=== PATIENT | male | born 1950 | race Caucasian/White ===

== ENCOUNTER 2019-07-13 00:59 | Outpatient (CLI) | payer MEDICARE, OTHER, SELFPAY ==
--- NOTE | 2019-07-13 09:42 | DI.RAD_ITS ---
EXAM: XR FOOT RT COMPLETE INDICATION: HALLUX VALGUS RT FOOT M20.11. COMPARISON: No exams were available for comparison TECHNIQUE: 2D digital imaging was performed. FINDINGS: There is some flattening of the plantar arch. There are small heel spurs. There is marked hallux va lgus. Degenerative changes are noted at the 1st MTP joint. Hammertoe deformities are present. IMPRESSION: Prominent hallux valgus.
== END 2019-07-13 01:19 ==
PROVIDERS: Visit Provider Podiatrist
DX: M20.11 Hallux valgus (acquired), right foot (principal); M77.31 Calcaneal spur, right foot; M20.41 Other hammer toe(s) (acquired), right foot
CPT/HCPCS: 73630

== ENCOUNTER 2020-12-13 10:36 | Emergency (ER) | payer OTHER, SELFPAY ==
[2020-12-13 10:41] VITALS: BP 133/69; PULSE 70; RESP 18; TEMP 36.4; O2SAT 98
--- NOTE | 2020-12-13 11:03 | ED.GENADUL_ITS ---
Discharge Plan Disposition Patient Disposition: HOME Condition: Stable Discharge Details Clinical Impression: Traumatic chest pain Primary Care Provider: Unknown,Unknown ED Provider: Emeka Blackman Home Meds and New Rx's Prescriptions: Continued dorzolamide-timolol [Cosopt] 22.3-6.8 mg/mL Drops 1 drp OPHTHALMIC (EYE) BID RF: 0 latanoprost 0.005 % Drops 1 drp OPHTHALMIC (EYE) QPM RF: 0 brimonidine 0.1 % Drops 1 drp OPHTHALMIC (EYE) TID RF: 0 Discharge Instructions Instructions: Rib Contusion (ED) Additional Instructions: You can take 1000mg tylenol and 600mg ibuprofen every 6 hours as needed for pain. Also try using your lidocaine patches if pain continues in a week follow up with your primary care provider if severe worsening pain or new pain such as abdomen pain or fevers return to the emergency department Medical Decision Making 70 yo male who denies being on blood thinners comes in with chief complaint of left sided chest discomfort after a fall. He states a week ago he tripped getting into his car and landed on his back and left chest. Denies head trauma or loc. He has had left lateral chest pain since the fall. Denies anterior chest pain or pressure or dyspnea. He states ibuprofen does help with the pain. Has no headache, no neck pain, no abdomen or back tenderness. Is noted to have a contusion over the coccyx but has no tenderness. No leg pain with normal gait. Only has pain in left lateral chest in the anterior axillary line over 5-7 ribs. no abdomen tenderness. I suspect rib contusion but will obtain xrays to evaluate for fracture and less likely pneumothorax, has clear lung sounds on exam. xray unremarkable and he remains stable without new complaints. Suspect rib contusion. Offered him a lidocaine patch but he declined as he has some at home. Advised to follow up with pcp and return precautions given Differential Diagnosis Differential Diagnosis: rib fracture, rib contusion, pneumothorax HPI General Mode of arrival: ambulatory . Date/Time Provider Initiated Documentation: 12/13/20 10:38 . Limitations to Documentation: no limitations . Information obtained by: patient . History of Present Illness 70 year old M presents to the emergency department with the chief complaint of left chest wall pain s/p fall, described as moderate, Quality is described as aching, and is localized to the chest. Patient reports no radiation. Patient started experiencing this week(s) (1) and it has been constant. other things that improve symptom(s), (ibuprofen) No exacerbating factors reported . Patient notes no other symptoms.. Patient did receive the following treatments prior to arrival, NSAID Related Data Home Medications Medication Instructions Recorded Confirmed brimonidine 1 drp OPHTHALMIC (EYE) TID 12/13/20 12/13/20 dorzolamide-timolol [Cosopt] 1 drp OPHTHALMIC (EYE) BID 12/13/20 12/13/20 latanoprost 1 drp OPHTHALMIC (EYE) QPM 12/13/20 12/13/20 Allergies Allergy/AdvReac Type Severity Reaction Status Date / Time oxycodone HCl AdvReac Unverified 12/13/20 10:49 [From OxyContin] General Stated Complaint: Chest/Rib CRISTEL: 3 Review of Systems All systems reviewed & are unremarkable except as noted in HPI and below Constitutional Constitutional: Denies chills, Denies fever(s) and Denies weakness Cardiovascular Cardiovascular: Denies dyspnea Respiratory Respiratory: Denies cough and Denies dyspnea Gastrointestinal Gastrointestinal: Denies abdominal pain, Denies nausea and Denies vomiting Musculoskeletal Musculoskeletal: Denies joint swelling Neurologic Neurologic: Denies weakness [facility] Social History Smoking/Tobacco Use Status: Never Smoking risk assessment performed?: Yes Alcohol Intake: former Drug use: Never Do you feel safe at home: Yes Do you feel safe in your relationship?: Yes Exam Const General: no acute distress Orientation: alert HENMT Head: normal to inspection Ears: external ears normal General nose exam: external nose normal Mouth: moist mucous membranes Eyes General: appearance normal, both eyes and all related structures Neck Neck: normal visual inspection Chest Chest: no crepitus and tenderness Resp Effort & Inspection: normal respiratory effort and able to speak in complete sentences Cardio Rate: regular rate Skin General skin exam: no rashes or lesions noted Neuro General: patient alert and patient oriented x3 Extrem General: normal to inspection Psych Mental Status: mental status grossly normal Course Vital Signs Vital signs: Vital Signs Temperature 36.4 C L 12/13/20 10:41 Pulse 70 12/13/20 10:41 Respiratory Rate 18 12/13/20 10:41 Blood Pressure 133/69 12/13/20 10:41 Pulse Oximetry 98 12/13/20 10:41 Temperature 36.4 C L 12/13/20 10:41 Temperature Source Temporal Artery Scan 12/13/20 10:41 Pulse 70 12/13/20 10:41 Respiratory Rate 18 12/13/20 10:41 Respiratory Effort Non-Labored 12/13/20 10:54 Respiratory Depth Normal 12/13/20 10:54 Respiratory Pattern Normal 12/13/20 10:54 Blood Pressure 133/69 12/13/20 10:41 Blood Pressure Position Sitting 12/13/20 10:41 Pulse Oximetry 98 12/13/20 10:41 Oxygen Delivery Method Room Air 12/13/20 10:41 Oxygen Flow Rate 0 12/13/20 10:41 Pain Level 8 12/13/20 10:54
--- NOTE | 2020-12-13 11:16 | DI.RAD_ITS ---
Exam(s) XR RIBS LT W PA LAT CHEST EXAM: XR RIBS LT W PA LAT CHEST CLINICAL HISTORY: pain s/p fall TECHNIQUE: 2D digital imaging was performed. COMPARISON: CR CHEST 2 VIEWS PA,LAT from 12/17/2012 FINDINGS: There are no acute left rib fractures evident. No lytic rib lesions identified. No lung contusion or pneumothorax. There is no pleural effusion evident. Heart size is normal and there is no significant mediastinal widening. IMPRESSION: 1. No rib fractures evident. Also no obvious rib lesions. 2. No ipsilateral lung nor pleural abnormality evident. No pneumothorax. DATA REPOSITORY: RADIATION DOSE DELIVERED:
[2020-12-13 12:02] VITALS: BP 133/69; PULSE 70; RESP 18; O2SAT 98
== END 2020-12-13 12:01 | disposition home or self-care (01) ==
PROVIDERS: Emergency Provider Emergency Medicine; PCP Internal Medicine
DX: S29.8XXA Other specified injuries of thorax, initial encounter (principal); W01.198A Fall on same level from slipping, tripping and stumbling with subsequent striking against other object, initial encounter
CPT/HCPCS: 99283; 71046; 71100; 99282

== ENCOUNTER 2021-05-15 01:57 | Outpatient (CLI) | payer OTHER, SELFPAY ==
[2021-05-15 10:17] LABS: Source Nasal/Nares
[2021-05-15 13:53] LABS: COVID-19 PCR Negative (Negative)
== END 2021-05-15 01:58 | disposition home or self-care (01) ==
LOC: LBO 01:58
PROVIDERS: PCP Internal Medicine; Visit Provider Ophthalmology
DX: Z20.822 Contact with and (suspected) exposure to COVID-19 (principal); Z01.818 Encounter for other preprocedural examination
CPT/HCPCS: 87635

== ENCOUNTER 2021-05-17 10:17 | Day surgery (SDC) | payer OTHER, SELFPAY ==
--- NOTE | 2021-05-17 06:32 | HPE_ITS ---
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 (3) Low-tension glaucoma, right eye, indeterminate stage: Status: Chronic Assessment and plan: Normal tension glaucoma, right eye, indeterminate stage. Stage is 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 based on degree of disc cupping and reported degree of visual field loss. Currently maintained on 4 topical medications. Glaucoma stent is planned at the time of cataract surgery. (4) Nuclear sclerotic cataract of left eye: Status: Chronic (5) Posterior subcapsular age-related cataract of left eye: Status: Chronic (6) Low-tension glaucoma, left eye, indeterminate stage: Status: Chronic History of Present Illness History of Present Illness Chief Complaint: Decreased vision, both eyes Narrative: The patient is a 70-year-old male with history progressive decreased vision in both eyes, right eye greater than left who was noted to have significa nt bilateral cataracts. He also has a history of normal tension glaucoma of both eyes, indeterminate stage. The stage of his glaucoma is 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 based on the appearance of the optic nerves. He has advanced disc cupping in both eyes with a thin central cornea. Per his [facility] notes he has visual field defects in both eyes. The option of cataract surgery was discussed with the patient and he wished to proceed. In addition, the option of a glaucoma stent at the time of cataract surgery was also offered to the patient and he wished to proceed with this as well. He is currently on 4 topical medications to manage his glaucoma. 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 History of chronic cough History of esophageal reflux History of obesity Hx of primary hypertension Hx of sleep apnea CPAP compliant Hx of spinal stenosis cervival No history of cellulitis Surgical History History of hernia surgery Hx of sinus surgery Social History Smoking/Tobacco Use Status: Never Smoking risk assessment performed?: Yes Alcohol Intake: former Drug use: Never Substance use type: does not use Do you feel safe at home: Yes Do you feel safe in your relationship?: Yes Meds Allergies and Home Medications Allergies Allergy/AdvReac Type Severity Reaction Status Date / Time oxycodone HCl AdvReac Intermediate Vomiting Unverified 05/17/21 11:00 [From OxyContin] Home Medications Medication Instructions Recorded Confirmed Type brimonidine 1 drp OPHTHALMIC (EYE) TID 12/13/20 05/17/21 History dorzolamide-timolol [Cosopt] 1 drp OPHTHALMIC (EYE) BID 12/13/20 05/17/21 History latanoprost 1 drp OPHTHALMIC (EYE) QPM 12/13/20 05/17/21 History Exam Eyes Periorbital: periorbital findings normal Eyelids: eyelids normal Conjunctivae: conjunctivae normal Sclera: sclerae normal Pupils: PERRL EOM: EOM intact bilaterally Other: Family examination reveals corrected visual acuity of 20/25 OD, 20/30 OS. Intraocular pressure is 10 OD, 12 OS. Moderate bilateral nuclear and posterior subcapsular cataracts are present. Examination of the optic nerves reveals disc cupping of 0.8 OD, 0.85 OS. Resp Effort & Inspection: normal respiratory effort Auscultation: clear to auscultation bilaterally Cardio Rate: regular rate Rhythm: regular rhythm
[2021-05-17 11:02] VITALS: BP 127/75; PULSE 68; RESP 16; TEMP 36.4; O2SAT 96
[2021-05-17] MEDS: Tropicam./Phenyleph. (1/2.5%) 5 ML BTL OD ×3 (11:19→11:31)
--- NOTE | 2021-05-17 11:37 | ANES.PREOP_ITS ---
General Info Date of Service Date Performed: 05/17/21 Height: 6 ft 1 in Weight: 132.7 kg Body Mass Index (BMI): 38.5 Surgical Procedure: Operation Date: 05/17/21 13:40 Proposed Procedures Side Surgeon p Cataract Extraction with IOL Implant Right Edwardo Dodge MD Meds Allergies and Home Medications Allergies Allergy/AdvReac Type Severity Reaction Status Date / Time oxycodone HCl AdvReac Intermediate Vomiting Unverified 05/17/21 11:00 [From OxyContin] Home Medication Medication Instructions Recorded brimonidine 1 drp OPHTHALMIC (EYE) TID 12/13/20 dorzolamide-timolol [Cosopt] 1 drp OPHTHALMIC (EYE) BID 12/13/20 latanoprost 1 drp OPHTHALMIC (EYE) QPM 12/13/20 Current Visit Medications: Current Medications Generic Name Dose Route Start Last Admin Trade Name Freq PRN Reason Stop Dose Admin Acetaminophen 1,000 mg 05/17/21 06:00 Acetaminophen 500 Mg Tab PO Q4H PRN PRN Miscellaneous Medication 0 ml 05/17/21 06:00 Prednisolone 1%, Moxifloxacin 0.5%, Nepafenac 0.1% 5ml Btl OD DIRECTED DASH Miscellaneous Medication 0 ml 05/17/21 06:00 05/17/21 11:31 Tropicam./Phenyleph. (1/2.5%) 5 Ml Btl OD 1 drp DIRECTED DASH Administration Tetracaine HCl 0 ml 05/17/21 06:00 Tetracaine 0.5% 4 Ml Btl OD DIRECTED DASH PFSH Active Problems Active Problems: Problem Status Onset Code Traumatic chest pain R07.9 Low-tension glaucoma, left eye, indeterminate stage H40.1224 Low-tension glaucoma, right eye, indeterminate stage H40.1214 Nuclear sclerotic cataract of right eye H25.11 Nuclear sclerotic cataract of left eye H25.12 Posterior subcapsular age-related cataract, right eye H25.041 Posterior subcapsular age-related cataract of left eye H25.042 Medical History Medical History (Updated 05/17/21 @ 11:16 by Bianca Gamez) COVID-14 March 2021 Glaucoma Normal tension glaucoma, both eyes, indeterminate stage, 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 History of chronic cough History of esophageal reflux History of obesity Hx of primary hypertension Hx of sleep apnea CPAP compliant Hx of spinal stenosis cervival No history of cellulitis Surgical History Surgical History History of hernia surgery Hx of sinus surgery Tobacco Smoking/Tobacco Use Status: Never Alcohol Alcohol Intake: former Substance Use Substance use: Never Substance use type: does not use Vital Signs and Lab Results Vital Signs Most Recent Vital Signs in EMR: Most Recent Vital Signs Temp Pulse Resp BP Pulse Ox 36.4 C L 68 16 127/75 96 05/17/21 11:02 05/17/21 11:02 05/17/21 11:02 05/17/21 11:02 05/17/21 11:02 Lab Results Blood Type / Crossmatch: No Data to Display Complete Blood Count: No Data to Display Complete Metabolic Panel: No Data to Display Liver Function Panel: No Data to Display Coagulation Panel: No Data to Display Cardiac Panel: No Data to Display Arterial Blood Gas: No Data to Display Venous Blood Gas: No Data to Display Pancreas Panel: No Data to Display Thyroid Panel: No Data to Display Infectious Disease: 2 Coronavirus (COVID-19)(PCR) Negative (Negative) 05/15/21 09:08 05/15/21 Coronavirus 2019 Source Nasal/Nares 05/15/21 09:08 05/15/21 Blood Cultures: No Data to Display Toxicology Panel: No Data to Display Imaging and Studies Imaging and Studies Echocardiogram Summary: DATE OF SERVICE: 12/17/12 STUDY INDICATIONS: Pulmonary hypertension. FINDINGS: LEFT VENTRICLE/LVEF: LVEF 65%. Technically limited study. Poor endocardial definition. RIGHT VENTRICLE: Normal size and function in very limited views. AORTIC VALVE: No aortic stenosis or insufficiency. MITRAL VALVE: No mitral stenosis or insufficiency. TRICUSPID VALVE: No tricuspid insufficiency. RSV/PA/RIGHT ATRIAL PRESSURE: PULMONIC VALVE: Not visualized. ATRIA: Mild biatrial enlargement. DIASTOLIC INDICES: GREAT VESSELS: The inferior vena cava is not visualized. PERICARDIUM: No effusion. RHYTHM: Sinus. Anesthesia Assessment and Plan Anesthesia History Personal History: No History of Anesthesia Complications Family History: No Family History of Anesthesia Complications Exercise Tolerance Exercise Tolerance: Metabolic Equivalents>4 Pertinent Negatives Pertinent Negatives: No Symptoms of GERD Cardiac & Pulmonary Exam Cardiac Exam: Normal S1/S2 Heart Sounds Pulmonary Exam: Clear Bilateral Breath Sounds Airway Exam Known Difficult Airway: No Mallampati Class: 2 Mouth Opening: Normal (> 3cm) Thyromental Distance: Greater than 3 cm Neck Range of Motion: Full ROM Neck Circumference: Normal Teeth Condition: Normal Dentition ASA Classification ASA Score: ASA 2 Emergency Case?: No NPO Status NPO Status: NPO Clears >2 hours, Solids >8 hours Anesthesia Plan Resuscitation Status: Full Code Anesthesia Technique: MAC Anesthesia Airway Planned: Natural Airway Monitors Used: Standard Monitors
[2021-05-17 11:47] VITALS: BMI 38.5
[2021-05-17] MEDS: Tetracaine 0.5% 4 ML BTL OD (12:53)
[2021-05-17] MEDS: Balanced Salt Soln.-PLUS 500 ML BAG (12:54)
[2021-05-17] MEDS: Lidocaine 1% Pres-Free 5 ML VIAL (12:54)
[2021-05-17] MEDS: Duovisc Viscoelastic System EACH 1 EACH (12:56)
[2021-05-17] MEDS: Povidone-Iodine Ophth 30 ML BTL (12:56)
[2021-05-17] MEDS: Lidocaine 2% Jelly 6 ML SYR (12:57)
--- NOTE | 2021-05-17 13:25 | W.PM.DSUDISC ---
Discharge Plan Disposition Patient Disposition: HOME Condition: Good Discharge Details Reason For Visit: Cataract Attending Provider: Edwardo Dodge Primary Care Provider: Janny Gallo Home Meds and New Rx's Prescriptions: No Action dorzolamide-timolol [Cosopt] 22.3-6.8 mg/mL Drops 1 drp OPHTHALMIC (EYE) BID RF: 0 latanoprost 0.005 % Drops 1 drp OPHTHALMIC (EYE) QPM RF: 0 brimonidine 0.1 % Drops 1 drp OPHTHALMIC (EYE) TID RF: 0 Discharge Instructions Stand Alone Forms: Post-op Topical Cataract, Hayder Rocha (DSU) Discharge Orders Discharge Orders: Discharge Order (Routine); Ordered 05/17/21 Ordered By: Edwardo Dodge DS: Diagnosis Discharge Diagnosis (1) Nuclear sclerotic cataract of right eye: Status: Resolved (2) Posterior subcapsular age-related cataract, right eye: Status: Resolved (3) Low-tension glaucoma, right eye, indeterminate stage: Status: Chronic
--- NOTE | 2021-05-17 13:26 | W.PM.OP ---
Date of service: 05/17/21 Time of Service: 13:27 Operative Note Operative Note DATE OF PROCEDURE: 05/17/21 PRE-OP DIAGNOSIS: Nuclear/posterior subcapsular cataract, right eye Normal tension glaucoma, right eye, indeterminate stage POST-OP DIAGNOSIS: same PROCEDURE: 1. Cataract extraction using phacoemulsification with intraocular lens implant, right eye 2. Insertion of anterior segment aqueous drainage devices (Glaukos iStent inject x 1) into trabecular meshwork, right eye SURGEON: Edwardo Dodge ANESTHESIA TYPE: Local By Surgeon and MAC Refer to Anesthesia Record PATHOLOGY: none sent COMPLICATIONS: None Patient was transported to: same day Patient's condition: stable Implants: 1. [employer] / [employer] Tecnis [id number] intraocular lens 2. Glaukos iStent inject trabecular micro-bypass stent x 1 Indications: 1. Progressive decreased vision due to cataract, right eye 2. Normal tension glaucoma, right eye, indeterminate stage Procedure Description: CATARACT SURGERY OPERATIVE REPORT PREOPERATIVE DIAGNOSIS: Nuclear/posterior subcapsular cataract, right eye Normal-tension glaucoma, right eye, indeterminate stage POSTOPERATIVE DIAGNOSIS: Same OPERATION: 1. Cataract extraction using phacoemulsification with posterior chamber intraocular lens implant, right eye. 2. Insertion of anterior segment aqueous drainage devices (Glaukos iStent inject x 1) into trabecular meshwork, right eye IOL: IOL [employer]/Model: [employer] / KULWANT Tecnis ZCB00 IOL Power: + 18.5 diopters IOL Serial Number: [id number] Optic Diameter: 6.0mm Haptic/Overall Diameter: 13.0mm PHACO INFO: Ag[employer]o [employer] Vision System with OZil and [employer] Cumulative Dispersed Energy (CDE): 8.83 seconds TRABECULAR MICRO-BYPASS STENT INFO: Glaukos iStent inject x 2 Reference Number: [id number] Serial Number: [id number] SURGEON: Edwardo Dodge MD, EMELI ANESTHESIA: Monitored Anesthesia Care (MAC), with local sub-tenon's anesthetic infiltration COMPLICATIONS: None SPECIMENS: None INDICATIONS FOR PROCEDURE: The patient is a 70-year-old gentleman with history of normal tension glaucoma of the right eye, indeterminate stage, 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. He is currently on 4 topical medications. He is also developed a significant nuclear/posterior subcapsular cataract of the right eye. The option of cataract surgery was offered to the patient and he wished to proceed. In addition, the option of trabecular micro-bypass stent at the time of cataract surgery was offered to the patient and he wished to proceed with this as well. PROCEDURE: The correct surgical eye was identified and marked as the right eye and the pupil was dilated in the preoperative area using mydriatics and cycloplegics. The dilated pupil size was 7.0 mm. He elected to proceed without oral sedation. The patient was brought to the operating room where cardiopulmonary monitoring was instituted and surgical time-out was performed, confirming the correct operative eye and IOL power. Topical anesthesia was administered and ophthalmic povidone-iodine 5% was instilled into the conjunctival fornices. Lidocaine gel was applied to the cornea and the gian-ocular area was prepped with Betadine 10% solution and draped in the usual sterile fashion for intraocular surgery, including an aperture drape. A Tegaderm transparent film dressing was cut in half and used to cover the lashes and lid margins. Care was taken to sequester the lashes and lid margins under the Tegaderm dressing. A lid speculum was placed between the lids of the operative eye and the Alvin-Zabrina operating microscope was maneuvered into position. Marjorie scissors were then used to make a conjunctival buttonhole approximately 6mm posterior to the limbus in the inferonasal quadrant. Blunt dissection was carried out to expose bare sclera, and a blunt-tipped sub-tenon?s anesthesia cannula was introduced and passed posteriorly along the globe where non-preserved plain lidocaine was injected into posterior sub-Tenon?s space. A sideport knife was used to make a paracentesis port inferiortemporally. Intraocular phenylephrine/lidocaine was injected into the anterior chamber. The anterior chamber was then filled with viscoelastic. A 2.4mm keratome knife was used to create a half-thickness groove at the limbus and then to construct a three-plane near-clear corneal tunnel extending 2.0mm into clear cornea in the superiortemporal position. . A flap was raised on the anterior capsule and capsulorhexis forceps were used to complete a continuous curvilinear capsulorhexis of 5.5 mm. Balanced salt solution was then used to perform cortical cleaving hydrodissection and nuclear hydrodelineation until the lens could be freely rotated within the capsular bag. The lens nucleus was then disassembled and removed within the capsular bag and iris plane using phacoemulsification. Residual cortical material was removed using the 45-degree angled silicone I/A tip with 0.3mm port. The posterior capsule was carefully polished to remove as much residual lens epithelial cells as safely possible. The capsular bag was then inflated and the anterior chamber deepened with viscoelastic. The lens implant described above was inserted into the capsular bag using the KULWANT Wy[employer]o Injector. A Kuglen hook was used to dial the IOL into position. The anterior chamber was then slightly over-filled with viscoelastic. The microsope and the patient's head were tilted into the ideal position for viewing of the anterior chamber angle. Viscoelastic was placed on the cornea followed by a surgical gonionlens, and the anterior chamber angle landmarks were identified. The [employer] iStent inject handpiece was introduced into the anterior chamber and the insertion sleeve was retracted once the injector was distal to the pupillary margin. The trocar was advanced through the central portion of the trabecular meshwork and into the back wall of Schlemm's canal in the inferonasal quadrant, with care taken to ensure the micro-insertion tube was perpendicular to the trabecular meshwork. The trabecular meshwork was lightly dimpled and the greater button was pressed, however the stent failed to deploy. A second attempt was made and the stent also failed to deploy. However, on November 26 attempt, the stent achieved good implantation within the tract nuclear meshwork. A significant mount of heme appeared through the stent aperture. The angle was cleared using viscoelastic, and the second stent was attempted to be implanted at the 4 o'clock position, but was unsuccessful, as the stent failed to implant completely. It was removed on the trocar. The microscope and the patients head were returned to the normal coaxial position. Viscoelatic was then removed from the anterior chamber using the I/A handpiece. The lens implant was noted to center nicely within the capsular bag. The incisions were stromally hydrated, and the anterior chamber was reformed using BSS. Then 0.4cc of moxifloxacin 1.5mg/ml were injected into the capsular bag and anterior chamber. The incisions were checked with a Weck spear and found to be secure. Several drops of ophthalmic povidone-iodine 5% were then applied to the eye followed by two drops of Imprimis combination prednisolone/moxifloxacin/nepafenac solution. The drapes were removed and a clear plastic protective eye shield was placed over the eye. The patient was then returned to [facility] in stable condition.
[2021-05-17 13:38] VITALS: BP 158/77; PULSE 59; RESP 16; TEMP 36.1; O2SAT 99
--- NOTE | 2021-05-17 13:41 | W.ANESPOSTOP ---
Postoperative Evaluation Date, Time and Location Date Performed: 05/17/21 Time Performed: 13:42 Patient Location: Day Surgery Unit Vital Signs Most Recent Imported Vital Signs: Most Recent Vital Signs Temp Pulse Resp BP Pulse Ox 36.1 C L 59 L 16 158/77 H 99 05/17/21 13:38 05/17/21 13:38 05/17/21 13:38 05/17/21 13:38 05/17/21 13:38 Pain Score Most Recent Pain Score: Most Recent Pain Score Pain Level 0 05/17/21 13:38 Assessment Mental Status: Awake (Alert & Oriented to Patient Baseline) Airway and Respiratory Function: Patent airway with normal (patient baseline) respiratory exam Cardiovascular Function: Hemodynamically Stable Hydration Status: Adequately Hydrated Nausea & Vomiting: No Nausea or Vomiting Pain: Pt. Denies Any Pain Peripheral Nerve Block: Patient did not receive a nerve block
== END 2021-05-17 13:59 | disposition home or self-care (01) ==
PROVIDERS: PCP Internal Medicine; Visit Provider Ophthalmology
PROC: (CPT 66984; principal; 2021-05-17 13:30)
DX: H25.041 Posterior subcapsular polar age-related cataract, right eye (principal); H40.1 Open-angle glaucoma; H40.1224 Low-tension glaucoma, left eye, indeterminate stage
CPT/HCPCS: 66984; 0191T; V2632; C1783

== ENCOUNTER 2021-08-16 01:42 | Outpatient (CLI) | payer OTHER, SELFPAY ==
[2021-08-16 11:08] LABS: Source Nasal/Nares
[2021-08-16 13:51] LABS: COVID-19 PCR Negative (Negative)
== END 2021-08-16 01:43 | disposition home or self-care (01) ==
LOC: LBO 01:43
PROVIDERS: PCP Internal Medicine; Visit Provider Ophthalmology
DX: H25.042 Posterior subcapsular polar age-related cataract, left eye (principal); Z20.822 Contact with and (suspected) exposure to COVID-19
CPT/HCPCS: 87635

== ENCOUNTER 2021-08-19 10:05 | Day surgery (SDC) | payer OTHER, SELFPAY ==
--- NOTE | 2021-08-19 10:21 | HPE_ITS ---
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 Plan: Cataract extraction with lens implantation of the left eye to improve and maximize vision. (2) Nuclear sclerotic cataract of left eye: Status: Chronic Assessment and plan: Assessment: Visually significant cataract of the left eye. Plan: Cataract extraction with lens implantation of the left eye to improve and maximize vision. (3) Primary open-angle glaucoma, left eye, indeterminate stage: Status: Acute Assessment and plan: Assessment: Primary open-angle glaucoma of the left eye, stage indeterminate, probably moderate to severe. Plan: Trabecular micro- bypass stent of the left eye at the time of cataract surgery. History of Present Illness History of Present Illness Chief Complaint: Progressive decreased vision, left eye Narrative: The patient is a 71-year-old gentleman with history of progressive decreased vision in both eyes secondary to the development of nuclear and cortical cataract. He also has a history of glaucoma with advanced disc cupping. Currently managed on 3 medications. He has already undergone cataract surgery in the right eye on 05/17/2021 with implantation of glaucoma stent as well. He is doing well postoperatively, and now presents for cataract surgery with glaucoma stent implantation in the left eye. 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 History of chronic cough History of esophageal reflux History of obesity Hx of primary hypertension Hx of sleep apnea CPAP compliant Hx of spinal stenosis cervival No history of cellulitis Surgical History (Updated 08/19/21 @ 10:57 by Bianca Gamez) History of hernia surgery Hx of cataract removal with insertion of prosthetic lens bilateral with glaucoma stents Hx of sinus surgery Social History Smoking/Tobacco Use Status: Never Smoking risk assessment performed?: Yes Alcohol Intake: former Drug use: Never Substance use type: does not use Do you feel safe at home: Yes Do you feel safe in your relationship?: Yes Meds Allergies and Home Medications Allergies Allergy/AdvReac Type Severity Reaction Status Date / Time oxycodone HCl AdvReac Intermediate Vomiting Unverified 08/19/21 10:57 [From OxyContin] Home Medications Medication Instructions Recorded Confirmed Type brimonidine 1 drp OPHTHALMIC (EYE) TID 12/13/20 08/19/21 History dorzolamide-timolol [Cosopt] 1 drp OPHTHALMIC (EYE) BID 12/13/20 08/19/21 History latanoprost 1 drp OPHTHALMIC (EYE) QPM 12/13/20 08/19/21 History Exam Eyes General: appearance normal, both eyes and all related structures Alignment and Position: alignment normal Eyelids: eyelids normal Conjunctivae: conjunctivae normal Sclera: sclerae normal Cornea: corneas normal Pupils: PERRL EOM: EOM intact bilaterally Other: Slit-lamp examination reveals a well-positioned PCIOL in the right eye with clear posterior capsule. 3+ nuclear with 1+ posterior subcapsular cataract is present in the left eye with pupil dilating to 4.5 mm. Funduscopic examination reveals disc cupping of 0.8 OD, 0.85 OS. Intraocular pressure is 7 OD, 10 OS. The vessels, macula, peripheral retina and vitreous are normal OU. Resp Auscultation: clear to auscultation bilaterally Cardio Rate: regular rate Rhythm: regular rhythm
[2021-08-19] MEDS: Tropicam./Phenyleph. (1/2.5%) 5 ML BTL OS ×3 (10:56→11:04)
[2021-08-19 11:00] VITALS: BP 156/89; PULSE 72; RESP 16; TEMP 36.6; O2SAT 97
--- NOTE | 2021-08-19 11:52 | W.ANESPRE ---
General Info Date of Service Date Performed: 08/19/21 Height: 6 ft 1 in Weight: 136 kg Body Mass Index (BMI): 39.5 Surgical Procedure: Operation Date: 08/19/21 13:40 Proposed Procedures Side Surgeon p Intraocular Stent Placement/IOL Implant Left Edwardo Dodge MD Meds Allergies and Home Medications Allergies Allergy/AdvReac Type Severity Reaction Status Date / Time oxycodone HCl AdvReac Intermediate Vomiting Unverified 08/19/21 10:57 [From OxyContin] Home Medication Medication Instructions Recorded brimonidine 1 drp OPHTHALMIC (EYE) TID 12/13/20 dorzolamide-timolol [Cosopt] 1 drp OPHTHALMIC (EYE) BID 12/13/20 latanoprost 1 drp OPHTHALMIC (EYE) QPM 12/13/20 Current Visit Medications: Current Medications Generic Name Dose Route Start Last Admin Trade Name Freq PRN Reason Stop Dose Admin Acetaminophen 1,000 mg 08/19/21 06:00 Acetaminophen 500 Mg Tab PO Q4H PRN PRN Miscellaneous Medication 0 ml 08/19/21 06:00 Prednisolone 1%, Moxifloxacin 0.5%, Nepafenac 0.1% 5ml Btl OS DIRECTED DASH Miscellaneous Medication 0 ml 08/19/21 06:00 08/19/21 11:04 Tropicam./Phenyleph. (1/2.5%) 5 Ml Btl OS 1 drp DIRECTED DASH Administration Tetracaine HCl 0 ml 08/19/21 06:00 Tetracaine 0.5% 4 Ml Btl OS DIRECTED DASH PFSH Active Problems Active Problems: Problem Status Onset Code Traumatic chest pain R07.9 Low-tension glaucoma, left eye, indeterminate stage H40.1224 Low-tension glaucoma, right eye, indeterminate stage H40.1214 Nuclear sclerotic cataract of right eye H25.11 Nuclear sclerotic cataract of left eye H25.12 Posterior subcapsular age-related cataract, right eye H25.041 Posterior subcapsular age-related cataract of left eye H25.042 Primary open-angle glaucoma, left eye, indeterminate stage H40.1124 Medical History Medical History COVID-14 March 2021 Glaucoma Normal tension glaucoma, both eyes, indeterminate stage, 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 History of chronic cough History of esophageal reflux History of obesity Hx of primary hypertension Hx of sleep apnea CPAP compliant Hx of spinal stenosis cervival No history of cellulitis Surgical History Surgical History (Updated 08/19/21 @ 10:57 by Bianca Gamez) History of hernia surgery Hx of cataract removal with insertion of prosthetic lens bilateral with glaucoma stents Hx of sinus surgery Tobacco Smoking/Tobacco Use Status: Never Alcohol Alcohol Intake: former Substance Use Substance use: Never Substance use type: does not use Vital Signs and Lab Results Vital Signs Most Recent Vital Signs in EMR: Most Recent Vital Signs Temp Pulse Resp BP Pulse Ox 36.6 C 72 16 156/89 H 97 08/19/21 11:00 08/19/21 11:00 08/19/21 11:00 08/19/21 11:00 08/19/21 11:00 Lab Results Blood Type / Crossmatch: No Data to Display Complete Blood Count: No Data to Display Complete Metabolic Panel: No Data to Display Liver Function Panel: No Data to Display Coagulation Panel: No Data to Display Cardiac Panel: No Data to Display Arterial Blood Gas: No Data to Display Venous Blood Gas: No Data to Display Pancreas Panel: No Data to Display Thyroid Panel: No Data to Display Infectious Disease: Coronavirus (COVID-19)(PCR) Negative (Negative) 08/16/21 09:18 08/16/21 Coronavirus 2019 Source Nasal/Nares 08/16/21 09:18 08/16/21 Blood Cultures: No Data to Display Toxicology Panel: No Data to Display Imaging and Studies Imaging and Studies Study information below may be from another EMR and interpreted by another provider. Please see original notes in EMR for more complete details. Echocardiogram Summary: DATE OF SERVICE: 12/17/12 STUDY INDICATIONS: Pulmonary hypertension. FINDINGS: LEFT VENTRICLE/LVEF: LVEF 65%. Technically limited study. Poor endocardial definition. RIGHT VENTRICLE: Normal size and function in very limited views. AORTIC VALVE: No aortic stenosis or insufficiency. MITRAL VALVE: No mitral stenosis or insufficiency. TRICUSPID VALVE: No tricuspid insufficiency. RSV/PA/RIGHT ATRIAL PRESSURE: PULMONIC VALVE: Not visualized. ATRIA: Mild biatrial enlargement. DIASTOLIC INDICES: GREAT VESSELS: The inferior vena cava is not visualized. PERICARDIUM: No effusion. RHYTHM: Sinus. Anesthesia Assessment and Plan Anesthesia History Personal History: No History of Anesthesia Complications Family History: No Family History of Anesthesia Complications Exercise Tolerance Exercise Tolerance: Metabolic Equivalents>4 Pertinent Negatives Pertinent Negatives: No Symptoms of GERD, No Major Cardiovascular Symptoms or Complaints, No Major Pulmonary Symptoms or Complaints and No History of CVA/TIA Cardiac & Pulmonary Exam Cardiac Exam: Normal S1/S2 Heart Sounds Pulmonary Exam: Clear Bilateral Breath Sounds Implantable Cardiac Device Does patient have a Pacemaker or an ICD?: No Airway Exam Known Difficult Airway: No Mallampati Class: 2 Mouth Opening: Normal (> 3cm) Thyromental Distance: Greater than 3 cm Neck Range of Motion: Full ROM Neck Circumference: Normal Teeth Condition: Normal Dentition ASA Classification ASA Score: ASA 2 Emergency Case?: No NPO Status NPO Status: NPO Clears >2 hours, Solids >8 hours Anesthesia Plan Resuscitation Status: Full Code Anesthesia Technique: MAC Anesthesia Airway Planned: Natural Airway Monitors Used: Standard Monitors
[2021-08-19 11:54] VITALS: BMI 39.5
[2021-08-19] MEDS: Tetracaine 0.5% 4 ML BTL OS (12:13)
[2021-08-19] MEDS: Balanced Salt Soln.-PLUS 500 ML BAG (12:14)
[2021-08-19] MEDS: Duovisc Viscoelastic System EACH 1 EACH (12:14)
[2021-08-19] MEDS: Lidocaine 2% Jelly 6 ML SYR (12:15)
[2021-08-19] MEDS: Povidone-Iodine Ophth 30 ML BTL (12:16)
[2021-08-19 12:40] VITALS: BP 157/91; PULSE 67; RESP 16; TEMP 36.6; O2SAT 97
--- NOTE | 2021-08-19 12:43 | W.ANESPOSTOP ---
Postoperative Evaluation Date, Time and Location Date Performed: 08/19/21 Time Performed: 12:43 Patient Location: Day Surgery Unit Vital Signs Most Recent Imported Vital Signs: Most Recent Vital Signs Temp Pulse Resp BP Pulse Ox 36.6 C 72 16 156/89 H 97 08/19/21 11:00 08/19/21 11:00 08/19/21 11:00 08/19/21 11:00 08/19/21 11:00 Most Recent Manually Entered Vital Signs: Adult Blood Pressure: 157/91 Heart Rate: 71 Respirations: 12 Oxygen Saturation (%): 98 Temperature (C): 36.6 C Pain Score (0-10 Scale): 0 Pain Score Most Recent Pain Score: Most Recent Pain Score Pain Level 0 08/19/21 11:00 Assessment Mental Status: Awake (Alert & Oriented to Patient Baseline) Airway and Respiratory Function: Patent airway with normal (patient baseline) respiratory exam Cardiovascular Function: Hemodynamically Stable Hydration Status: Adequately Hydrated Nausea & Vomiting: No Nausea or Vomiting Pain: Pt. Denies Any Pain Peripheral Nerve Block: Patient did not receive a nerve block
[2021-08-19 12:44] VITALS: BP 157/91; PULSE 71; RESP 12; TEMPC 36.6; O2SAT 98
--- NOTE | 2021-08-19 12:47 | W.PM.DSUDISC ---
Discharge Plan Disposition Patient Disposition: HOME Condition: Good Discharge Details Attending Provider: Edwardo Dodge Primary Care Provider: Janny Gallo Home Meds and New Rx's Prescriptions: No Action dorzolamide-timolol [Cosopt] 22.3-6.8 mg/mL Drops 1 drp OPHTHALMIC (EYE) BID RF: 0 latanoprost 0.005 % Drops 1 drp OPHTHALMIC (EYE) QPM RF: 0 brimonidine 0.1 % Drops 1 drp OPHTHALMIC (EYE) TID RF: 0 Discharge Instructions Stand Alone Forms: Post-op Topical Cataract, Hayder Rocha ([facility]) Discharge Orders Discharge Orders: Discharge Order (Routine); Ordered 08/19/21 Ordered By: Edwardo Dodge DS: Diagnosis Discharge Diagnosis (1) Posterior subcapsular age-related cataract of left eye: Status: Resolved (2) Nuclear sclerotic cataract of left eye: Status: Resolved (3) Primary open-angle glaucoma, left eye, indeterminate stage: Status: Chronic
--- NOTE | 2021-08-19 12:48 | W.PM.OP ---
Date of service: 08/19/21 Time of Service: 12:48 Operative Note Operative Note DATE OF PROCEDURE: 08/19/21 PRE-OP DIAGNOSIS: Nuclear/posterior subcapsular cataract, left eye Primary open-angle glaucoma, left eye, indeterminate stage PROCEDURE: 1. Cataract extraction using phacoemulsification with intraocular lens implant, left eye 2. Insertion of multiple anterior segment aqueous drainage device (Glaukos iStent inject x 1) into trabecular meshwork, left eye SURGEON: Edwardo Dodge ANESTHESIA TYPE: Local By Surgeon and MAC Refer to Anesthesia Record ESTIMATED BLOOD LOSS: 0 PATHOLOGY: none sent COMPLICATIONS: None Patient was transported to: same day Patient's condition: stable Implants: 1. [employer] / [employer] Tecnis [id number] intraocular lens 2. Glaukos iStent inject trabecular micro-bypass stent x 1 Indications: 1. Progressive decreased vision due to cataract, left eye 2. Primary open angle glaucoma, left eye Procedure Description: CATARACT SURGERY OPERATIVE REPORT PREOPERATIVE DIAGNOSIS: Nuclear/posterior subcapsular cataract, left eye Primary open-angle glaucoma, left eye, indeterminate stage POSTOPERATIVE DIAGNOSIS: Same OPERATION: 1. Cataract extraction using phacoemulsification with posterior chamber intraocular lens implant, left eye. 2. Insertion of multiple anterior segment aqueous drainage devices (Glaukos iStent inject x 1) into trabecular meshwork, left eye IOL: IOL Exhaust Machine Operator/Model: [employer] / KULWANT Tecnis ZCB00 IOL Power: + 19.5 diopters IOL Serial Number: [id number] Optic Diameter: 6.0mm Haptic/Overall Diameter: 13.0mm PHACO INFO: [employer] Vision System with [employer]il and [employer] Cumulative Dispersed Energy (CDE): 8.81 seconds TRABECULAR MICRO-BYPASS STENT INFO: Glaukos iStent inject x 2 Reference Number: [id number] Serial Number: [id number] US [id number] SURGEON: Edwardo Dodge MD, EMELI ANESTHESIA: Monitored Anesthesia Care (MAC), with local sub-tenon's anesthetic infiltration COMPLICATIONS: None SPECIMENS: None INDICATIONS FOR PROCEDURE: The patient is a 71-year-old gentleman with history of progressive decreased vision in both eyes secondary to the development of bilateral nuclear and posterior subcapsular cataract. He also has a history of open-angle glaucoma of indeterminate stage, managed on 3 medications. He has already undergone cataract surgery with microtrabecular bypass stent in the right eye and is doing well postoperatively. He now presents for cataract surgery in the left eye with implantation of microtrabecular bypass stent as well. PROCEDURE: The correct surgical eye was identified and marked as the left eye and the pupil was dilated in the preoperative area using mydriatics and cycloplegics. The dilated pupil size was 8.0 mm. Oral sedation was administered in the form of an Imprimis MKO Melt (midazolam 3mg/ketamine 25mg/ondansetron 2mg). The patient was brought to the operating room where cardiopulmonary monitoring was instituted and surgical time-out was performed, confirming the correct operative eye and IOL power. Topical anesthesia was administered and ophthalmic povidone-iodine 5% was instilled into the conjunctival fornices. Lidocaine gel was applied to the cornea and the gian-ocular area was prepped with Betadine 10% solution and draped in the usual sterile fashion for intraocular surgery, including an aperture drape. A Tegaderm transparent film dressing was cut in half and used to cover the lashes and lid margins. Care was taken to sequester the lashes and lid margins under the Tegaderm dressing. A lid speculum was placed between the lids of the operative eye and the Alvin-Zabrina operating microscope was maneuvered into position. Marjorie scissors were then used to make a conjunctival buttonhole approximately 6mm posterior to the limbus in the inferonasal quadrant. Blunt dissection was carried out to expose bare sclera, and a blunt-tipped sub-tenon?s anesthesia cannula was introduced and passed posteriorly along the globe where non-preserved plain lidocaine was injected into posterior sub-Tenon?s space. A sideport knife was used to make a paracentesis port superior/superiortemporally. Intraocular phenylephrine/lidocaine was injected into the anterior chamber. The anterior chamber was then filled with viscoelastic. A 2.4mm keratome knife was used to create a half-thickness groove at the limbus and then to construct a three-plane near-clear corneal tunnel extending 2.0mm into clear cornea in the temporal position. . A flap was raised on the anterior capsule and capsulorhexis forceps were used to complete a continuous curvilinear capsulorhexis of 5.5 mm. Balanced salt solution was then used to perform cortical cleaving hydrodissection and nuclear hydrodelineation until the lens could be freely rotated within the capsular bag. The lens nucleus was then disassembled and removed within the capsular bag and iris plane using phacoemulsification. Residual cortical material was removed using the 45-degree angled silicone I/A tip with 0.3mm port. The posterior capsule was carefully polished to remove as much residual lens epithelial cells as safely possible. The capsular bag was then inflated and the anterior chamber deepened with viscoelastic. The lens implant described above was inserted into the capsular bag using the KULWANT [place] Injector. A Kuglen hook was used to dial the IOL into position. The anterior chamber was then slightly over-filled with viscoelastic. The microsope and the patient's head were tilted into the ideal position for viewing of the anterior chamber angle. Viscoelastic was placed on the cornea followed by a surgical goniolens, and the anterior chamber angle landmarks were identified. The [employer] iStent inject handpiece was introduced into the anterior chamber and the insertion sleeve was retracted once the injector was distal to the pupillary margin. The trocar was advanced through the central portion of the trabecular meshwork and into the back wall of Schlemm's canal in the nasal quadrant, with care taken to ensure the micro-insertion tube was perpendicular to the trabecular meshwork. The trabecular meshwork was lightly dimpled and the stent was injected with the second press of the actuator button.. The same procedure was then performed in the superiornasal quradrant, however the stent failed to deploy after 2 pushes of the actuator button. The microscope and the patients head were returned to the normal coaxial position. Viscoelatic was then removed from the anterior chamber using the I/A handpiece. The lens implant was noted to center nicely within the capsular bag. The incisions were stromally hydrated, and the anterior chamber was reformed using BSS. Then 0.5cc of moxifloxacin 1.0mg/ml were injected into the capsular bag and anterior chamber. The incisions were checked with a Weck spear and found to be secure. Several drops of ophthalmic povidone-iodine 5% were then applied to the eye followed by two drops of Imprimis combination prednisolone/moxifloxacin/nepafenac solution. The drapes were removed and a clear plastic protective eye shield was placed over the eye. The patient was then returned to Same Day Surgery in stable condition.
== END 2021-08-19 13:09 | disposition home or self-care (01) ==
PROVIDERS: PCP Internal Medicine; Visit Provider Ophthalmology
PROC: (CPT 66984; principal; 2021-08-19 13:30)
DX: H25.042 Posterior subcapsular polar age-related cataract, left eye (principal); H40.1124 Primary open-angle glaucoma, left eye, indeterminate stage; I10 Essential (primary) hypertension; E66.9 Obesity, unspecified; G47.30 Sleep apnea, unspecified
CPT/HCPCS: 66984; 0191T; V2632; C1783

== ENCOUNTER 2021-11-22 08:00 | Outpatient (RCR) | payer OTHER, SELFPAY ==
--- NOTE | 2021-10-28 14:30 | RT.EKG_ITS ---
APPROVED REPORT Exam: Resting ECG Reason for Exam: Baseline pre cardiac rehab Patient Location: O HR:94 bpm ECG Measurements Heart Rate 94 AXIS ND 164 P 31 QRSd 72 QRS 31 QT 424 T 204 QTc 531 Conclusion Sinus rhythm...normal P axis, V-rate 50- 99 Consider left atrial enlargement...wide or notched P waves Prolonged QT interval...QTc >500mS
== END 2021-11-23 23:59 | disposition home or self-care (01) ==
LOC: CR 08:00
PROVIDERS: PCP Internal Medicine; Visit Provider Internal Medicine Cardiovascular Disease
DX: Z51.89 Encounter for other specified aftercare (principal); Z95.1 Presence of aortocoronary bypass graft
CPT/HCPCS: S9472

== ENCOUNTER 2021-12-20 08:00 | Outpatient (RCR) | payer OTHER, SELFPAY | END 2021-12-24 23:59 | disposition home or self-care (01) | LOC: CR 08:00 | PROVIDERS: PCP Internal Medicine; Visit Provider Internal Medicine Cardiovascular Disease | DX: Z51.89 Encounter for other specified aftercare (principal); Z95.1 Presence of aortocoronary bypass graft | CPT/HCPCS: S9472 ==

== ENCOUNTER 2022-01-22 08:00 | Outpatient (RCR) | payer OTHER, SELFPAY | END 2022-01-23 23:59 | disposition home or self-care (01) | LOC: CR 08:00 | PROVIDERS: PCP Internal Medicine; Visit Provider Internal Medicine Cardiovascular Disease | DX: Z51.89 Encounter for other specified aftercare (principal); Z95.1 Presence of aortocoronary bypass graft | CPT/HCPCS: S9472 ==

== ENCOUNTER 2022-02-03 08:00 | Outpatient (RCR) | payer OTHER, SELFPAY | END 2022-02-23 23:59 | disposition home or self-care (01) | LOC: CR 08:00 | PROVIDERS: PCP Internal Medicine; Referring Provider Student in an Organized Health Care Education/Training Program; Visit Provider Internal Medicine Cardiovascular Disease | DX: Z51.89 Encounter for other specified aftercare (principal); Z95.1 Presence of aortocoronary bypass graft | CPT/HCPCS: S9472 ==

== ENCOUNTER 2022-05-29 09:30 | Outpatient (CLI) | payer OTHER, SELFPAY ==
--- NOTE | 2022-05-29 09:15 | DI.RAD_ITS ---
Exam(s) XR STANDING ALIGNMENT EXAM: XR STANDING ALIGNMENT CLINICAL HISTORY: bilateral knee osteoarthritis TECHNIQUE: COMPARISON: No exams were available for comparison FINDINGS: AP views of both lower extremities were obtained for standing alignment. There are moderate degenera tive changes of the lateral tibiofemoral joint on the right with a mild valgus angulation of the righ t knee. Mild degenerative changes noted involving right medial tibiofemoral joint and bilateral tibi ofemoral joints on left. IMPRESSION: RADIATION DOSE DELIVERED: Total DLP
== END 2022-05-29 09:31 | disposition home or self-care (01) ==
LOC: DIORS 09:30
PROVIDERS: PCP Internal Medicine; Referring Provider Internal Medicine; Visit Provider Student in an Organized Health Care Education/Training Program
DX: M17.0 Bilateral primary osteoarthritis of knee (principal)
CPT/HCPCS: 77073

== ENCOUNTER → 2022-12-08 12:44 | Outpatient (BNVA) | payer MEDICARE, SELFPAY | PROVIDERS: PCP Internal Medicine; Referring Provider Internal Medicine; Visit Provider Physician Assistant | DX: M17.11 Unilateral primary osteoarthritis, right knee (principal); M17.12 Unilateral primary osteoarthritis, left knee | CPT/HCPCS: 20610; J1040 ==

== ENCOUNTER → 2023-03-12 11:12 | Outpatient (BNVA) | payer MEDICARE, SELFPAY | PROVIDERS: PCP Internal Medicine; Referring Provider Internal Medicine; Visit Provider Student in an Organized Health Care Education/Training Program | DX: M17.11 Unilateral primary osteoarthritis, right knee (principal); M17.12 Unilateral primary osteoarthritis, left knee | CPT/HCPCS: 20610; J1040 ==

== ENCOUNTER 2023-09-21 04:16 | Outpatient (CLI) | payer OTHER, SELFPAY ==
[2023-09-21 13:48] LABS: HCT 42.2 % (40.0-50.0); HGB 13.9 g/dL (13.5-17.5); MCH 31.2 pg (27.0-33.0); MCHC 32.9 % (32.0-36.0); MCV 95 fL (80-95); MPV 8.9 fL (8.0-11.0); Platelet Count 226 10^3/uL (130-400); RBC 4.46 10^6/uL (4.36-5.78); RDW 12.8 % (11.8-14.1); RDW-SD 44.2 fL; WBC 6.13 10^3/uL (4.4-10.8)
[2023-09-21 14:00] LABS: Anion Gap 9.5 mmol/L (3-11); BUN 23 mg/dL (7-18); CO2 29.5 mmol/L (21.0-32.0); CREATININE 1.1 mg/dL (0.70-1.30); Calcium 9.5 mg/dL (8.5-10.1); Chloride 103 mmol/L (98-107); Estimated GFR 71.32 (mL/min/1.73m2); Glucose 100 mg/dL (74-106); Potassium 4.3 mmol/L (3.5-5.1); Sodium 142 mmol/L (136-145)
== END 2023-09-21 04:17 | disposition home or self-care (01) ==
LOC: LBO 04:16
PROVIDERS: PCP Internal Medicine; Visit Provider Student in an Organized Health Care Education/Training Program
DX: M25.561 Pain in right knee (principal); M17.11 Unilateral primary osteoarthritis, right knee; Z01.818 Encounter for other preprocedural examination; Z01.812 Encounter for preprocedural laboratory examination
CPT/HCPCS: 36415; 80048; 85027

== ENCOUNTER 2023-10-06 08:10 | Day surgery (SDC) | payer OTHER, SELFPAY ==
[2023-10-06] VITALS (24 sets, daily range): BP systolic 127–163; BP diastolic 62–95; PULSE 60–89; RESP 0–24; TEMP 36–36.5; O2SAT 93–99; BMI 37.3
--- NOTE | 2023-10-06 07:28 | PDOC.DSDIS_ITS ---
Date of service: 10/06/23 Time of Service: 07:28 Discharge Plan Disposition Patient Disposition: Home Condition: Good Discharge Details Reason For Visit: R TKR Attending Provider: Will Alicia Primary Care Provider: VICTOR M CABELLO Home Meds and New Rx's Prescriptions: New celecoxib 200 mg capsule 200 mg PO BID Qty: 60 0RF aspirin 81 mg tablet,delayed release (DR/EC) 81 mg PO BID Qty: 60 0RF acetaminophen 500 mg tablet 1,000 mg PO TID Qty: 90 3RF pantoprazole 40 mg tablet,delayed release (DR/EC) 40 mg PO DAILY Qty: 30 0RF dexamethasone 4 mg tablet 4 mg PO DAILY Qty: 2 0RF gabapentin 300 mg capsule 300 mg PO QHS Qty: 14 0RF Continued tamsulosin 0.4 mg capsule 0.4 mg PO DAILY brimonidine 0.2 % drops 1 drp ophthalmic (eye) BID budesonide 0.5 mg/2 mL suspension for nebulization 0.25 mg inhalation BID carboxymethylcellulose sodium 0.5 % drops 1 drp ophthalmic (eye) QID mometasone-formoterol 100-5 mcg/actuation HFA aerosol inhaler 2 puff inhalation BID allopurinol 100 mg tablet 100 mg PO DAILY colchicine 0.6 mg capsule 0.6 mg PO DAILY albuterol sulfate 90 mcg/actuation HFA aerosol inhaler 2 puff inhalation Q6H PRN atorvastatin 80 mg tablet 80 mg PO DAILY fluticasone propionate 50 mcg/actuation spray,suspension 1 spray intranasal BID Rx Instructions: administer into each nostril furosemide 80 mg tablet 80 mg PO DAILY metoprolol tartrate 25 mg tablet 25 mg PO BID potassium chloride 10 mEq capsule, extended release 10 meq PO DAILY dorzolamide-timolol [Cosopt] 22.3-6.8 mg/mL Drops 1 drp OPHTHALMIC (EYE) BID latanoprost 0.005 % Drops 1 drp OPHTHALMIC (EYE) QPM Discontinued aspirin 81 mg tablet,delayed release (DR/EC) 81 mg PO DAILY Discharge Instructions Additional Instructions: Total Knee Discharge Instructions Activity: The most important activity is to walk and to work on gentle motion (both flexion and extension). You should try to take short walks a few times a day. It is important that when resting you work on keeping the knee straight. Avoid putting a pillow behind the knee as this will encourage flexion. Work on range of motion exercises as provided by Physical Therapy. - Start outpatient physical therapy within 2 weeks. - You should wear the SIMONE hose on both legs for 2 weeks. You may remove these at night. You may also use any compression sock in place of the SIMONE hose. - Utilize [employer] to review exercises, see videos on exercises and obtain basic information pertaining to your surgery and your recovery. Dressing: Remove the Saulo wrap by 2 days after your surgery and put on the SIMONE stocking given to you from the hospital. Keep the surgical dressing (underneath the SAULO wrap) in place for at least one week. After the first week it may be removed and replaced with light gauze and tape or nothing. The wound and dressing may get wet after 3 days but avoid soaking the dressing or otherwise it will need to be changed. Many people prefer covering the dressing with cling wrap (saran wrap) to minimize it from getting soaked. If it gets wet, just pat dry. If it starts to peel off then it will need to be changed. Medications: - You should take Tylenol and anti-inflammatory Celebrex as your primary pain control medications. If the Celebrex is too expensive or not covered, please call the office for another alternative (Advil/Ibuprofen or Naproxen/Aleve) - You have been prescribed a stronger pain medication Oxycodone for breakthrough pain, take as needed as prescribed. - You have also been prescribed a stomach acid reduction agent Pantoprozole to help reduce stomach acid and reflux. - You have been prescribed Gabapentin to take at night for restlessness and nerve pain. - You will be taking Aspirin 81mg twice a day for DVT prevention unless instructed otherwise. - You have also been prescribed Decadron to take to control post-operative nausea and pain. You will start this tomorrow. - If you have constipation you should take Colace or Miralax (both [id number]). It takes most people 3-4 days to have a bowel movement. Follow-up: 2 weeks If you have any acute concerns or questions, please do not hesitate to contact the office at [phone]. You may contact Dr. Alicia with any questions after hours through the hospital at [phone] or on his cell phone at [phone]. Referrals: Will Alicia MD [ [facility] STAFF PHYSICIAN] - Equipment/Supplies: Walker Activity:: Activity as Tolerated Shower/Bathe:: 72 hours Diet:: As Tolerated DS: Diagnosis Discharge Diagnosis (1) Acquired genu valgum of right knee: Status: Acute
[2023-10-06] MEDS: Gabapentin 300 MG CAP PO (08:41)
[2023-10-06] MEDS: Celecoxib 200 MG CAP 400 MG PO (08:42)
[2023-10-06] MEDS: Acetaminophen 500 MG TAB 1000 MG PO (08:42)
[2023-10-06] MEDS: Lactated Ringers 1,000 ML 80 ML IV (09:08)
--- NOTE | 2023-10-06 10:33 | ANES.PREOP_ITS ---
General Info Date of Service Date Performed: 10/06/23 Height: 6 ft 1 in Weight: 128.367 kg Body Mass Index (BMI): 37.3 Surgical Procedure: Operation Date: 10/06/23 10:55 Proposed Procedure Side Surgeon p Knee Total Arthroplasty w/OrthAlign, Cementless CR Right Will Alicia MD Actual Procedure Side Surgeon p Knee Total Arthroplasty w/OrthAlign, Cementless CR Right Will Alicia MD Pre-Op Diagnosis Post-Op Diagnosis Bilateral primary osteoarthritis of knee Acquired genu valgum of right knee Meds Allergies and Home Medications Allergies Allergy/AdvReac Type Severity Reaction Status Date / Time oxycodone HCl AdvReac Intermediate Vomiting Verified 10/06/23 08:30 [From OxyContin] amoxicillin AdvReac Unknown Other (See Verified 10/06/23 08:30 Comment) Home Medication Medication Instructions Recorded dorzolamide 22.3 mg-timolol 6.8 1 drp ophthalmic (eye) BID 12/13/20 mg/mL eye drops (Cosopt) latanoprost 0.005 % eye drops 1 drp ophthalmic (eye) QPM 12/13/20 albuterol sulfate 90 mcg/actuation 2 puff inhalation Q6H PRN 04/01/22 aerosol inhaler atorvastatin 80 mg tablet 80 mg PO DAILY 04/01/22 fluticasone propionate 50 1 spray intranasal BID 04/01/22 mcg/actuation nasal spray,suspension furosemide 80 mg tablet 80 mg PO DAILY 04/01/22 metoprolol tartrate 25 mg tablet 25 mg PO BID 04/01/22 potassium chloride 10 mEq 10 meq PO DAILY 04/01/22 capsule,extended release tamsulosin 0.4 mg capsule 0.4 mg PO DAILY 12/08/22 allopurinol 100 mg tablet 100 mg PO DAILY 09/21/23 brimonidine 0.2 % eye drops 1 drp ophthalmic (eye) BID 09/21/23 budesonide 0.5 mg/2 mL suspension 0.25 mg inhalation BID 09/21/23 for nebulization carboxymethylcellulose sodium 0.5 1 drp ophthalmic (eye) QID 09/21/23 % eye drops colchicine 0.6 mg capsule 0.6 mg PO DAILY 09/21/23 mometasone-formoterol HFA 100 2 puff inhalation BID 09/21/23 mcg-5 mcg/actuation aerosol inhaler acetaminophen 500 mg tablet 1,000 mg (2 x 500 mg) PO TID #90 10/06/23 tabs aspirin 81 mg tablet,delayed 81 mg PO BID #60 tabs 10/06/23 release celecoxib 200 mg capsule 200 mg PO BID #60 caps 10/06/23 dexamethasone 4 mg tablet 4 mg PO DAILY #2 tabs 10/06/23 gabapentin 300 mg capsule 300 mg PO QHS #14 caps 10/06/23 pantoprazole 40 mg tablet,delayed 40 mg PO DAILY #30 tabs 10/06/23 release Current Visit Medications: Current Medications Generic Name Dose Route Start Last Admin Trade Name Freq PRN Reason Stop Dose Admin Acetaminophen 1,000 mg 10/06/23 06:00 10/06/23 08:42 Acetaminophen 500 Mg Tab PO 10/06/23 16:00 1,000 mg PREOP DASH Administration Acetaminophen 1,000 mg 10/06/23 07:26 Acetaminophen 500 Mg Tab PO 11/05/23 07:25 TID PRN PRN Analgesia Celecoxib 400 mg 10/06/23 06:00 10/06/23 08:42 Celecoxib 200 Mg Cap PO 10/06/23 16:00 400 mg PREOP DASH Administration Docusate Sodium 100 mg 10/06/23 07:26 Docusate Sodium 100 Mg Cap PO 11/05/23 07:25 BID PRN PRN Constipation Gabapentin 300 mg 10/06/23 06:00 10/06/23 08:41 Gabapentin 300 Mg Cap PO 10/06/23 16:00 300 mg PREOP DASH Administration Tranexamic Acid/Sodium Chloride 100 mls @ 600 mls/hr 10/06/23 06:00 IVPB 10/06/23 16:00 DIRECTED DASH Ringer's Solution 1,000 mls @ 80 mls/hr 10/06/23 06:00 10/06/23 09:08 IV 10/06/23 23:59 80 mls/hr INFUSION DASH Administration Cefazolin Sodium/Dextrose 2 gm in 50 mls @ 100 mls/hr 10/06/23 06:00 Ancef Duplex IVPB 10/06/23 23:59 PREOP DASH IV Miscellaneous Supplies 1 each 10/06/23 06:00 Iv Access IV 10/06/23 23:59 DIRECTED DASH Ondansetron HCl 4 mg 10/06/23 07:26 Ondansetron 4 Mg/2 Ml Vial IVP 11/05/23 07:25 Q6H PRN PRN Nausea Polyethylene Glycol 17 gm 10/06/23 07:26 Polyethylene Glycol 3350 17 Gm Packet PO 11/05/23 07:25 BID PRN PRN Constipation Sodium Chloride 0 ml 10/06/23 06:00 Normal Saline Flush 10 Ml Syr IV 10/06/23 23:59 PRN PRN Sodium Chloride 0 ml 10/06/23 06:00 Normal Saline 10 Ml Vial IJ 10/06/23 23:59 DIRECTED PRN Sterile Water 0 ml 10/06/23 06:00 Water,Injection,Sterile 10 Ml Vial IJ 10/06/23 23:59 DIRECTED PRN Tramadol HCl 50 - 100 mg 10/06/23 09:18 Tramadol 50 Mg Tab PO 11/05/23 09:17 Q4H PRN PRN PFSH Active Problems Active Problems: Problem Status Onset Code Acquired genu valgum of right knee M21.061 Bilateral primary osteoarthritis of knee M17.0 Primary open-angle glaucoma, left eye, indeterminate stage H40.1124 Posterior subcapsular age-related cataract of left eye H25.042 Posterior subcapsular age-related cataract, right eye H25.041 Nuclear sclerotic cataract of left eye H25.12 Nuclear sclerotic cataract of right eye H25.11 Low-tension glaucoma, right eye, indeterminate stage H40.1214 Low-tension glaucoma, left eye, indeterminate stage H40.1224 Traumatic chest pain R07.9 Medical History Medical History Hereditary lymphedema Lung nodule, multiple 06/02/22 [facility] describe multiple, stable nodules for years with change noted in RLL 4.5mm increase to 6.5mm Gout Hx of pleural effusion Spinal stenosis Obesity Hypertension Hx of primary hypertension History of chronic cough History of obesity No history of cellulitis History of esophageal reflux Hx of spinal stenosis cervival Hx of sleep apnea CPAP compliant Glaucoma Normal tension glaucoma, both eyes, indeterminate stage, 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 Approximately 2 months. Surgical History Surgical History Hx of CABG 08/23/2021-[facility]iology @ [facility] 08/2023 Hx of cataract removal with insertion of prosthetic lens bilateral with glaucoma stents History of hernia surgery Hx of sinus surgery Tobacco Smoking/Tobacco Use Status: Never Alcohol Alcohol Intake: former Substance Use Substance use: Never Substance use type: does not use Vital Signs and Lab Results Vital Signs Most Recent Vital Signs in EMR: Most Recent Vital Signs Temp Pulse Resp BP Pulse Ox 36.1 C L 60 14 137/68 96 10/06/23 09:45 10/06/23 09:45 10/06/23 09:45 10/06/23 09:45 10/06/23 09:45 Lab Results Blood Type / Crossmatch: No Data to Display Complete Blood Count: White Blood Count 6.13 10^3/uL (4.4-10.8) 09/21/23 13:44 Red Blood Count 4.46 10^6/uL (4.36-5.78) 09/21/23 13:44 Hemoglobin 13.9 g/dL (13.5-17.5) 09/21/23 13:44 Hematocrit 42.2 % (40.0-50.0) 09/21/23 13:44 Platelet Count 226 10^3/uL (130-400) 09/21/23 13:44 Complete Metabolic Panel: Sodium 142 mmol/L (136-145) 09/21/23 13:44 Potassium 4.3 mmol/L (3.5-5.1) 09/21/23 13:44 Chloride 103 mmol/L (98-107) 09/21/23 13:44 Carbon Dioxide 29.5 mmol/L (21.0-32.0) 09/21/23 13:44 BUN 23 mg/dL (7-18) H 09/21/23 13:44 Creatinine 1.1 mg/dL (0.70-1.30) 09/21/23 13:44 Est GFR (CKD-EPI 2020) 71.32 (mL/min/1.73m2) 09/21/23 13:44 Calcium 9.5 mg/dL (8.5-10.1) 09/21/23 13:44 Glucose 100 mg/dL (74-106) 09/21/23 13:44 Liver Function Panel: No Data to Display Coagulation Panel: No Data to Display Cardiac Panel: No Data to Display Arterial Blood Gas: No Data to Display Venous Blood Gas: No Data to Display Pancreas Panel: No Data to Display Thyroid Panel: No Data to Display Infectious Disease: No Data to Display Blood Cultures: No Data to Display Toxicology Panel: No Data to Display Imaging and Studies Imaging and Studies Study information below may be from another EMR and interpreted by another provider. Please see original notes in EMR for more complete details. EKG Summary: 10/2021 Conclusion Sinus rhythm...normal P axis, V-rate 50- 99 Consider left atrial enlargement...wide or notched P waves Prolonged QT interval...QTc >500mS Echocardiogram Summary: DATE OF SERVICE: 12/17/12 STUDY INDICATIONS: Pulmonary hypertension. FINDINGS: LEFT VENTRICLE/LVEF: LVEF 65%. Technically limited study. Poor endocardial definition. RIGHT VENTRICLE: Normal size and function in very limited views. AORTIC VALVE: No aortic stenosis or insufficiency. MITRAL VALVE: No mitral stenosis or insufficiency. TRICUSPID VALVE: No tricuspid insufficiency. RSV/PA/RIGHT ATRIAL PRESSURE: PULMONIC VALVE: Not visualized. ATRIA: Mild biatrial enlargement. DIASTOLIC INDICES: GREAT VESSELS: The inferior vena cava is not visualized. PERICARDIUM: No effusion. RHYTHM: Sinus. Other Study Summary:: 2021 echo LVEF 60% no valve dx noted Anesthesia Assessment and Plan Anesthesia History Personal History: No History of Anesthesia Complications Family History: No Family History of Anesthesia Complications Exercise Tolerance Exercise Tolerance: Metabolic Equivalents>4 Pertinent Negatives Pertinent Negatives: No Symptoms of GERD, No Major Cardiovascular Symptoms or Complaints, No Major Pulmonary Symptoms or Complaints and No History of CVA/TIA Cardiac & Pulmonary Exam Cardiac Exam: Normal S1/S2 Heart Sounds Pulmonary Exam: Clear Bilateral Breath Sounds Implantable Cardiac Device Does patient have a Pacemaker or an ICD?: No Airway Exam Known Difficult Airway: No Mallampati Class: 2 Mouth Opening: Normal (> 3cm) Thyromental Distance: Greater than 3 cm Neck Range of Motion: Limited ROM (pain with neck ROM on right side historically and left side ) Neck Circumference: Thick Teeth Condition: Normal Dentition ASA Classification ASA Score: ASA 3 Emergency Case?: No NPO Status NPO Status: NPO Clears >2 hours, Solids >8 hours Anesthesia Plan Resuscitation Status: Full Code Anesthesia Technique: Spinal Anesthesia Airway Planned: Natural Airway Monitors Used: Standard Monitors Preoperative Comments:: discussed pt current tenuous cardiovascular and pulmonary status and the risks of doing GA with ETT as back up, pt verbalized understanding. discussed plan for spinal and conversion to GA with ETT if pt unable to tolerate lying more flat on the table while sedated and pt agreeable to plan for spinal with some head elevation and instructor traffic safety level of sedation to maintain better pulmonary function throughout case.
[2023-10-06] MEDS: ceFAZolin 2 GM/50 ML BAG IVPB (10:54)
--- NOTE | 2023-10-06 11:24 | W.ANESNERVE ---
Nerve Block Single Injection Procedure Date and Time Date Performed: 10/06/23 Procedure Start: 09:45 Location Where Procedure Performed Procedure Location: Day Surgery Unit Reason Performed: Postoperative Analgesia Requesting Provider: Will Alicia Timeout Performed Timeout Performed: Yes Monitoring Used ECG, Blood Pressure, SpO2, ETCO2 and See EMR for corresponding vital signs Sterility Sterility: Hand Hygiene, Surgical Cap, Surgical Mask, Sterile Gloves and Chlorhexidine Sedation Given During Procedure Sedation Given (Indicate Dose Given): No Sedation given Patient Mental Status Patient Mental Status: Awake Nerve Block 1st Nerve Block: Laterality: Right Block Type: Adductor Canal Ultrasound Image Saved?: Yes Needle / Catheter Used: 100mm SonoPlex II Local Anesthetic Bolus (Indicate Dose Given): Lidocaine used for local infiltration of skin, Injected in 3-5ml increments after negative blood aspiration and Bupivacaine 0.25% Dose:: 15mL Additives (Indicate Dose Given): None Ultrasound: Sterile probe cover and gel used Nerve Stimulator: Not Used Paresthesia: None Procedure Tolerated: No Complications and Patient tolerated well Procedure Outcome: Successful Performed By: Allison Linder Supervised By: Marcelino Moon
--- NOTE | 2023-10-06 13:34 | W.PM.OP ---
Date of service: 10/06/23 Time of Service: 10:50 Operative Note Operative Note PRE-OP DIAGNOSIS: Right Knee Osteoarthritis with Valgus Deformity POST-OP DIAGNOSIS: same PROCEDURE: Right Total Knee Replacement with Intraoperative Navigation SURGEON: Will Alicia MICA PARTS SPRAYER: Vandana Alan ANESTHESIA TYPE: Spinal Refer to Anesthesia Record ESTIMATED BLOOD LOSS: 100 PATHOLOGY: none sent TOURNIQUET TIME: 0 COMPLICATIONS: None Patient was transported to: PACU Patient's condition: stable Implants: 1. Depuy Attune Cementless Cruciate Retaining Femoral Component, Size 9 2. Depuy Attune Cementless Fixed Bearing Tibial Component, Size 8 3. Depuy Attune 9x6 CR/FB Poly 4. Depuy Attune Patellar Component, Size 38 Indications: I have seen Lawrence in clinic for symptoms of knee arthritis, confirmed with radiographic findings. He has exhausted nonoperative methods and was having significant limitations in daily function and desired better function and less pain. I discussed the technical details of a knee replacement. I explained the risks of the procedure to include, but not limited to, bleeding, infection, pain, stiffness, fracture, damage to nerves and vessels, damage to muscles and tendons, loosening, need for repeat procedure, blood clot and cardiopulmonary demise. Despite these risks, Lawrence elected to proceed. Findings: There was significant signs of arthritis throughout the knee. Procedure Description: Lawrence was greeted in the preoperative holding area where the correct side was identified and marked. The consent was reviewed with the patient and signed. The history and physical was updated. All questions were answered. Preoperative mediacations were administered: Acetaminophen 1000mg, Celebrex 400mg, and Gabapentin 300mg. An adductor canal block was then administered by the anesthesia team in the PACU. He was taken back to the operating room. A spinal anesthestic was then administered. The patient was placed into the supine position on the operating room table. A nonsterile tourniquet was placed high onto the leg. Posts were placed for positioning during the procedure. All bony prominences were well padded. Prophylactic antibiotics in the form of Cefazolin were administered. 1g of Tranxemic Acid was given intravenously within 30 minutes of incision. The right leg was then prepped with Chloraprep and draped in a standard fashion with impervious stockinette. A second prep with Chloraprep was performed prior to application of Iodine impregnated skin protection. A timeout to confirm correct identity, side and site, procedure, allergies, anesthesia, and medical concerns was performed. With the knee in some flexion, a midline incision was made overlying the knee. Full thickness skin flaps were raised once the extensor mechanism was encountered. These were raised medially and laterally. Any bleeding was controlled with electrocautery. Once the extensor mechanism was fully exposed, a medial parapatellar arthrotomy was performed in a flexed position. All bleeding from the arthrotomy and the geniculate arteries was coagulated. A medial subperiosteal peel was performed with electrocautery to the midcoronal plane. The fat pad was removed while keeping the patellar tendon protected. The anterior distal femur synovium was removed for later visualization. The ACL and PCL were resected and the anterior horn of the lateral meniscus was transected. The knee was then flexed with the patella everted. Large osteophytes from the tibia were removed. Large osteophytes from the femur were removed. A single starting pin was then placed 1cm anterior to the PCL insertion and the notch in the direction of the femoral head. The OrthoAlign device was applied over the pin. It was oriented to be in line with the epicondylar axis and the trochlear groove. It was then pinned into place. The navigation computer was then turned on and calibrated. The distal femur cut was set at 0 degrees varus/valgus and 3.5 degrees flexion. The distal femur cutting guide then was positioned for a 9mm cut. The distal femur was cut with an oscillating saw while protecting the soft tissues. The tibia was then addressed. The OrthoAlign device was placed over the tibial tubercle and medial tibia and secured into position. Once again, OrthoAlign was calibrated and then set for a 1 degree varus cut and 5 degrees of posterior slope. With this locked into position, the cut thickness stylus was used to assess cut thickness. The lateral side, most involved side, was set for a 4mm cut. This was then held in position and pinned into place with 2 additional pins and a cross pin for stability. The medial and lateral collateral ligaments were protected and the cut was performed. With this completed, it was assessed and noted to be of appropriate dimensions. The guide and OrthoAlign was removed. A spacer block was inserted and the knee was brought into extension to ensure enough space was present. . The Orthoalign gap balancing device was then placed in extension. This was used to ensure that the ligaments were properly balanced with up to 2 to 3 mm laxity laterally compared medially. The extension gap was measured as 16mm. The knee was then brought into 90 degrees of flexion and the ligament outside repairer special was once again placed. Under the same amount of force the flexion gap was measured. The Attune specific jig was placed and the flexion gap was made to match the extension gap. The femur was then sized as a size 9. The 4-in-1 cutting guide was the placed. An federico wing was used to confirm appropriate position of the anterior cut to avoid notching. This cutting guide was ensured to be flush on the cut surface and then pinned into place with headed pins. While protecting the soft tissues, quad tendon, and collateral ligaments, the anterior and posterior cuts were performed with a saw. The central two pins were removed and the posterior and anterior chamfers were cut next. The notch-cutting guide was placed. This was pinned to lateralize the femoral component as much as possible while keeping it flush on the cut surface. This was then pinned into position. A saw was used to make the notch cut. A rasp smoothed the cut surfaces. The medial and lateral menisci were removed. A trial femoral component was then inserted, impacted down to the cut surfaces, and the lug holes were drilled. A provisional trial tibial component was placed and the knee was brought through range of motion. The polyethylene was trialed until there was good flexion and extension with excellent stability to the medial and lateral collaterals. The patella was tracking without thumbs. A size 6mm polyethylene component provided the best range of motion and stability with less than 2mm gapping with medial and lateral stress and full extension without significant hyperextension. The tibial cut surface was fully exposed. The tibia was then sized as a 8. The tibia had been previously marked during trialing to correspond to the center of the tibial component to help with rotation. The trial was aligned to this vandana, approximately rotated to the medial 1/3rd of the tibial tubercle. The trial was pinned into place. The tibia was prepared with a reamer and a keel punch and lug holes. The knee was then brought into extension and the patella was measured as 26mm. Using the patellar clamp and cut guide, this was resected to a flat surface with at least 13mm of thickness remaining. The size 38 patella fit the best. This was oriented and then clamped into position. The lugs were drilled. The trial components were removed. The final components were opened on the back table. The periosteal and capsular tissues, especially posteriorly, around the knee were then systematically injected with a periarticular cocktail consisting of 246mg of Ropivacaine, 0.5mg of Epinephrine, 0.08mg of Clonidine, and 30mg of Ketorolac, diluted to 100cc. On the back table, with the implants opened, the cement was mixed. One batch of high viscosity cement was prepared with vacuum assistance. After the cement was ready a small amount was placed on the cut surface of the patella and the patellar button was clamped into position and held. While the cement was hardening, the cementless knee components were placed. Starting with the tibial component, the tibia was subluxed anteriorly and the lug holes of the component were lined up. The tibia was then impacted with an impactor and mallet until the tibial component was in contact with the tibia. Then, the femoral component was inserted. The lug holes were aligned and the component was impacted into position. The final polyethylene component was inserted. The knee was irrigated with Surgiphor Betadine solution. This was allowed to sit in the knee for 3 minutes and then it was thoroughly irrigated out with saline. After the cement had finally cured, approximately 15min, the clamp was removed from the patella and the knee was taken through range of motion. The patella was tracking with a no-thumbs technique. The capsule was then reapproximated with a No. 1 Vicryl at multiple locations. The capsule was finally closed with a No. 2 Stratafix, barbed suture. Deep tissues were then reapproximated with 0 Vicryl and 2-0 Vicryl. The skin was closed with a running 3-0 Monocryl in a subcuticular fashion. This was reinforced with skin glue. A Mepilex silver dressing was applied along with a [id number] RYANNE wrap. A CryoCuff was applied. Lawrence was transferred to the hospital bed without difficulty an suffering no apparent complication. Lawrence has a good prognosis. Physical therapy will start today and without restrictions, weight-bearing as tolerated. Aspirin 81mg BID will be used for DVT prophylaxis.
[2023-10-06] MEDS: traMADol 50 MG TAB PO (13:51)
[2023-10-06] MEDS: Tranexamic Acid 650 MG TAB 1300 MG PO (14:16)
--- NOTE | 2023-10-06 14:31 | W.ANESPOSTOP ---
Postoperative Evaluation Date, Time and Location Date Performed: 10/06/23 Time Performed: 14:33 Patient Location: Day Surgery Unit Vital Signs Most Recent Imported Vital Signs: Most Recent Vital Signs Temp Pulse Resp BP Pulse Ox 36.3 C L 60 16 162/89 H 94 10/06/23 14:09 10/06/23 14:09 10/06/23 14:09 10/06/23 14:09 10/06/23 14:09 Pain Score Most Recent Pain Score: Most Recent Pain Score Pain Level 4 10/06/23 14:12 Assessment Mental Status: Awake (Alert & Oriented to Patient Baseline) Airway and Respiratory Function: Patent airway with normal (patient baseline) respiratory exam Cardiovascular Function: Hemodynamically Stable Hydration Status: Adequately Hydrated Nausea & Vomiting: No Nausea or Vomiting Pain: Pain is tolerable per patient Peripheral Nerve Block: Regional nerve block not resolved at time of post operative discharge
--- NOTE | 2023-10-06 14:50 | IN_ITS ---
PT Notes Visit Reasons: R TKR Physical Therapy Day Surgery Initial Evaluation Date: 10/06/2023 Referring Doctor: JOSE DAVID Lucas PT Orders: PT CONSULT: S/P Ortho Surgery Precautions: WBAT on the R LE with AD. 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 Independent with all aspects of ADLs prior to surgery although has had increasing difficulty with mobility ADL performance due to worsening arthritis. Equipment Owned/DME: 4WW, walking sticks Subjective: Reported 3-4/10 pain in the R knee that did not limit ability to perform mobility ADLs. No lightheadedness, chest pain, headache throughout. Objective: General Observation: RYANNE wraps to right LE. Cryocuff to right knee. TEDS to L leg and foot. Mental Status: Alert and oriented x 4 Pain: As above ROM: Right Lower Extremity: Hip flexion WFL. Hip abduction WFL. Knee flexion 45 degrees to 100 degrees. Knee extension -45 degrees. Ankle dorsiflexion to neutral only. Ankle plantarflexion WFL. Left Lower Extremity: Hip flexion WFL. Hip abduction WFL. Knee flexion WFL. Ankle dorsiflexion WFL. Ankle plantarflexion WFL. Strength: Right Lower Extremity: Hip flexors 4/5. Hip abductors 4/5. Knee flexors 3-/5. Knee extensors 3-/5. Ankle dorsiflexors 3-/5. Ankle plantarflexors 4-/5. Left Lower Extremity: Hip flexors 5/5. Hip abductors 5/5. Knee flexors 5/5. Knee extensors 5/5. Ankle dorsiflexors 5/5. Ankle plantarflexors 5/5. Sensation: Intact as to pain and light pressure in BLE Bed Mobility/Transfers: Minimal cueing provided for use of B hands as needed for support, movement sequence, AD management, and posture to reduce fall risk and minimize pain report Supine to sit stand by assist Sit to stand contact guard assist with FWW Stand to sit stand by assist with FWW Bed to chair stand by assist with FWW Gait: Facilitated safe and correct performance of level surface ambulation covering a distance of 150 feet using front-wheeled walker with step to gait pattern requiring standby assist and minimal verbal cueing for increased knee extension through mid stance on the right knee, AD management, directional changes, and overall safety to reduce fall risk and minimize pain report. Stairs: Guided patient with safe and correct negotiation of 3 x 4 inch steps and 2 x 6 inch steps holding onto bilateral rails with step to gait pattern with minimal verbal cueing to increase knee flexion on the right side during each ascent and to ensure maximal knee extension possible during descent needing only standby assist. Balance: Static Sitting: Normal Dynamic Sitting: Normal Static Standing: Fair Dynamic Standing: Fair Special Tests: Mobility Limitations Standardized Measure [facility]-P[facility] 6 clicks Basic Mobility Inpatient Short Form: Raw Score: 23 CMS Score: 11% deficit Informed Consent/Education: Patient instructed in purpose of PT consult. Packet containing TKA exercise protocol has been given to patient. Education and training on initial set of exercises that can be done at home have been completed with patient. Trained patient with correct performance of exercises below to maximize motor control, joint flexibility, soft tissue extensibility of the R knee musculature: Access Code: [email or web address] URL: [email or web address] Date: 10/06/2023 Prepared by: Deepika Quiles Exercises - Supine Quad Set - 1 x daily - 7 x weekly - 1 sets - 10 reps - 5 hold - Supine Heel Slide - 1 x daily - 7 x weekly - 1 sets - 10 reps - 5 hold - Supine Ankle Pumps - 1 x daily - 7 x weekly - 1 sets - 10 reps - 5 hold - Small Range Straight Leg Raise - 1 x daily - 7 x weekly - 1 sets - 10 reps - 5 hold - Seated March - 1 x daily - 7 x weekly - 1 sets - 10 reps - 5 hold Assessment: Patient requires use of front wheel walker for mobility ADL performance to maximize independence and reduce fall risk. Patient presents with clinical signs and symptoms consistent with current/admitting diagnoses that have resulted to mobility limitations, gait instability, generalized weakness, and impairment of motor control as demonstrated by the following impairment level findings: 1. Decreased strength to R knee major muscle groups 2. Impaired standing balance 3. Limitation of joint range of motion in R knee Impairments are contributing to the following functional limitations: 1. Inability to safely ambulate without assistive device 2. Increase completion time for mobility ADL performance 3. Increased fall risk Patient is assessed as a 53096 moderate complexity based on the following: History: 73-year-old male with impairment level findings, functional limitations, and past medical history as indicated above Examination: Demonstrable impairment in strength, balance, and mobility level with underlying impairments and functional limitations as documented above Presentation: Evolving Decision Makin moderate complexity Goals: N/A. PT evaluation and 1-2 treatment sessions only for functional mobility training using recommended AD and for HEP instruction. Plan of Care/Treatment Plan: N/A. PT evaluation and 1-2 treatment session only for functional mobility training using recommended AD and for HEP instruction. DISCHARGE RECOMMENDATIONS: Home when medically cleared by orthopedic surgeon. Recommend outpatient PT services in order to optimize functional mobility outcomes and facilitate return to independent community ambulation without an assistive device. TREATMENT CODE/TIME: 01620 x 20 minutes for 1 unit, 94348 x 18 minutes for 1 unit (14:03-14:41). Thank you for the opportunity to participate in the care of this patient. Please sign an return this page within 30 days if you agree with the above POC. Thank you! Physician Signature Date [facility] Thank you for the opportunity to participate in the care of this patient. Deepika Quiles PT, DPT, CLT [facility], [place]
== END 2023-10-06 15:50 | disposition home or self-care (01) ==
LOC: SUR 08:11
PROVIDERS: PCP Internal Medicine; Visit Provider Student in an Organized Health Care Education/Training Program
PROC: (CPT 27447; principal; 2023-10-06 10:45)
DX: M17.11 Unilateral primary osteoarthritis, right knee (principal); M21.061 Valgus deformity, not elsewhere classified, right knee; I10 Essential (primary) hypertension; H40.9 Unspecified glaucoma; E66.9 Obesity, unspecified; Z68.37 Body mass index [BMI] 37.0-37.9, adult
CPT/HCPCS: 27447; 20985; 76942; 97162; 97530; C1776; J0665; J0690; J1100; J2001; J2250; J2371; J2401; J2405; J2704

== ENCOUNTER 2023-10-19 16:00 | Outpatient (CLI) | payer OTHER, SELFPAY ==
--- NOTE | 2023-10-19 10:45 | DI.RAD_ITS ---
Exam(s) XR STANDING ALIGNMENT XR KNEE RT 1V EXAM: XR STANDING ALIGNMENT and XR knee RT 1 V CLINICAL HISTORY: 1ST POST OP S/P R TKA. TECHNIQUE: 2D digital imaging was performed. Five images were obtained. COMPARISON: CR XR STANDING ALIGNMENT from 05/29/2022 FINDINGS: BONES: The hips are well maintained. The patient is now status post right total knee replacement. T he orthopedic hardware appears in good position. There is mild persistent soft tissue swelling aroun d the right knee. No evidence of hardware failure. Mild degenerative changes are seen in the left k nee with joint space narrowing and osteophytes most marked in the lateral femoral tibial joint. The ankles are well maintained.The left lower extremity is 1 cm longer than the right lower extremity. SOFT TISSUE: Normal. IMPRESSION: 1. Right total knee replacement. 2. Mild degenerative changes in the left knee. DATA REPOSITORY: RADIATION DOSE DELIVERED:
== END 2023-10-19 16:01 | disposition home or self-care (01) ==
LOC: DIORS 16:01
PROVIDERS: PCP Internal Medicine; Visit Provider Student in an Organized Health Care Education/Training Program
DX: Z96.651 Presence of right artificial knee joint (principal); Z47.1 Aftercare following joint replacement surgery
CPT/HCPCS: 73560; 77073

== ENCOUNTER 2023-12-17 15:45 | Outpatient (CLI) | payer MEDICARE, SELFPAY ==
--- NOTE | 2023-12-17 11:13 | DI.RAD_ITS ---
Exam(s) XR ANKLE RT COMPLETE EXAM: XR ANKLE RT COMPLETE CLINICAL HISTORY: eval R aknle pain. TECHNIQUE: 2D digital imaging was performed. Three views. COMPARISON: CR RIGHT ANKLE COMPLETE from 08/31/2007 FINDINGS: BONES: No acute fracture is present. No bony destructive lesion is seen. Small heel spurs. JOINTS: The ankle mortise is normally aligned. The ankle joint space shows mild narrowing. Mild per iarticular spurring. SOFT TISSUE: Swelling. IMPRESSION: Mild degenerative changes and heel spurs. DATA REPOSITORY: RADIATION DOSE DELIVERED:
== END 2023-12-17 15:46 | disposition home or self-care (01) ==
LOC: DIORS 15:45
PROVIDERS: PCP Internal Medicine; Visit Provider Student in an Organized Health Care Education/Training Program
DX: M25.571 Pain in right ankle and joints of right foot (principal); Z47.1 Aftercare following joint replacement surgery; M17.12 Unilateral primary osteoarthritis, left knee
CPT/HCPCS: J1010; 73610

== ENCOUNTER 2024-09-19 12:48 | Outpatient (CLI) | payer OTHER, SELFPAY ==
--- NOTE | 2024-09-19 10:18 | DI.RAD_ITS ---
Exam(s) XR KNEE RT 2V AP,LAT EXAM: XR KNEE RT 2V AP,LAT INDICATION: ANNUAL F/U R TKA. COMPARISON: CR XR KNEE RT 1V from 10/19/2023 CR XR STANDING ALIGNMENT from 10/19/2023 TECHNIQUE: 2D digital imaging was performed. Two views. FINDINGS: Stable alignment of total the prosthesis. No abnormal surrounding bony lucencies. DATA REPOSITORY: RADIATION DOSE DELIVERED:
== END 2024-09-19 12:49 | disposition home or self-care (01) ==
LOC: DIORS 12:49
PROVIDERS: PCP Internal Medicine; Visit Provider Physician Assistant
DX: Z96.651 Presence of right artificial knee joint (principal); Z47.1 Aftercare following joint replacement surgery; M25.571 Pain in right ankle and joints of right foot
CPT/HCPCS: 73560

== ENCOUNTER 2025-06-21 02:02 | Emergency (ER) | payer OTHER, SELFPAY ==
[2025-06-21] VITALS (86 sets, daily range): BP systolic 50–137; BP diastolic 20–94; PULSE 58–170; RESP 17–32; TEMP 36.6; O2SAT 90–99
--- NOTE | 2025-06-21 02:00 | RT.EKG_ITS ---
APPROVED REPORT Exam: Resting ECG Reason for Exam: SOB Patient Location: E HR:90 bpm ECG Measurements Heart Rate 90 AXIS IL 196 P 60 QRSd 108 QRS 35 QT 361 T 106 QTc 442 Conclusion Sinus rhythm...normal P axis, V-rate 60- 99 Atrial premature complexes...SV complexes w/ short R-R intvls Nonspecific T abnormalities, lateral leads...T <-0.10mV, I aVL V5 V6 no ST segment or T wave abnormalities to suggest occlusive [place]
--- NOTE | 2025-06-21 02:00 | DI.RAD_ITS ---
Exam(s) XR PORTABLE CHEST AP EXAM: XR PORTABLE CHEST AP CLINICAL HISTORY: SOB TECHNIQUE: 2D digital imaging was performed of the chest. One image was obtained. An AP view was obtained. COMPARISON: CR CHEST 2 VIEWS PA,LAT from 12/17/2012 CR XR RIBS LT W PA LAT CHEST from 12/13/[address] THORAX ABD/PEL CTA from 06/21/2025 FINDINGS: MEDIASTINUM: Normal. HEART: Normal. PULMONARY VASCULATURE: Normal. LUNGS: There is an opacity in the left lower lobe which may represent pneumonia. The right lung appears clear. PLEURAL SPACE: There is blunting of the left costophrenic angle suggesting a small pleural effusion. BONE:Within normal limits for the patient's age. Sternal wires are in place. OTHER FINDINGS:Normal. IMPRESSION: 1. Left lower lobe infiltrate and small pleural effusion. 2. The preliminary [facility] report was reviewed. DATA REPOSITORY: RADIATION DOSE DELIVERED:
[2025-06-21] MEDS: Normal Saline 1,000 ML 1000 ML IV ×2 (02:15→05:17)
--- NOTE | 2025-06-21 02:15 | RT.EKG_ITS ---
APPROVED REPORT Exam: Resting ECG Reason for Exam: sob Patient Location: E HR:92 bpm ECG Measurements Heart Rate 92 AXIS IL 216 P 57 QRSd 105 QRS 33 QT 376 T 79 QTc 466 Conclusion Sinus rhythm...normal P axis, V-rate 60- 99 Prolonged IL interval...IL >215, V-rate 91-[address] segment or T wave abnormalities to suggest occlusive [place]
[2025-06-21] MEDS: Norepinephrine in D5W 8 MG/250 ML BAG 18.8 MG IV (02:29)
[2025-06-21 02:30] LABS: BE (Venous) -2 mmol/L (-2-3); HCO3 (Venous) 24 mmol/L (23-28); O2 Sat (Venous) 42 %; TCO2 (Venous) 22 mmol/L (24-29); pCO2 (Venous) 45 mmHg (41-51); pO2 (Venous) 26 mmHg
[2025-06-21] MEDS: Albuterol/Ipratropium 3 ML UPD VIAL UPD ×2 (02:30→09:12)
[2025-06-21 02:33] LABS: Abs Immature Grans 1.43 10^3/uL (0.0-0.06); HCT 41.4 % (40.0-50.0); HGB 13.7 g/dL (13.5-17.5); MCH 32.2 pg (27.0-33.0); MCHC 33.1 % (32.0-36.0); MCV 97 fL (80-95); MPV 9.3 fL (8.0-11.0); Platelet Count 199 10^3/uL (130-400); RBC 4.26 10^6/uL (4.36-5.78); RDW 13.8 % (11.8-14.1); RDW-SD 49.3 fL; WBC 19.34 10^3/uL (4.4-10.8)
[2025-06-21 02:36] LABS: INR 1.3 (0.9-1.1); PTT Activated 29.3 sec (20.6-30.2); Prothrombin Time 13.1 sec (9.1-11.1)
[2025-06-21] MEDS: Aspirin 81 MG CHEW 243 MG CH (02:38)
[2025-06-21 02:39] LABS: Lipase 20 U/L (<53); Troponin I 8 ng/L (<54)
[2025-06-21 02:40] LABS: Magnesium 2.0 mg/dL (1.6-2.6)
[2025-06-21 02:45] LABS: ALT 14 U/L (10-49); AST 13 U/L (<34); Albumin 3.9 g/dL (3.2-5.0); Alkaline Phosphatase 116 U/L (46-116); Anion Gap 7.2 mmol/L (3-11); BUN 24 mg/dL (9-23); Bilirubin, Total 2.40 mg/dL (0.2-1.2); CO2 24.8 mmol/L (20.0-31.0); Calcium 8.7 mg/dL (8.3-10.6); Chloride 104 mmol/L (98-107); Glucose 119 mg/dL (74-106); Potassium 2.6 mmol/L (3.5-5.1); Sodium 136 mmol/L (136-145); Total Protein 6.4 g/dL (5.7-8.2)
[2025-06-21] MEDS: DOBUTamine 500 MG/250 ML BAG 19.1 MG IV (02:45)
--- NOTE | 2025-06-21 02:45 | DI.CT_ITS ---
Exam(s) CT THORAX ABD/PEL CTA EXAM: CT THORAX ABD/PEL CTA CLINICAL HISTORY: eval for aortic dissection. TECHNIQUE: Imaging Protocol: Axial CT angiography was performed with multi- slice acquisition and multi-planar and/or 3D reconstructions. CONTRAST MATERIAL: Intravenous: Omnipaque 350 Contrast volume:85 ml Oral: no COMPARISON: CR,XR XR PORTABLE CHEST AP from 06/21/2025 FINDINGS: CHEST: Pulmonary Arteries: No evidence of filling defect to suggest pulmonary emboli. Tracheobronchial tree: Patent where visualized. Mediastinum and Sara: No dominant adenopathy or fluid collection. Pulmonary parenchyma: There are abnormal airspace of the densities in both lower lobes, left greater than right with the appearance consistent with pneumonia. There is mild linear atelectasis. No dominant measurable mass. Pleura: There are trace bilateral pleural effusions. No pneumothorax. Heart: The heart is not dilated. Prior CABG. Aorta: Thoracic aorta non-dilated. Mild atherosclerotic changes. Bones: Sternotomy wires. 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 There is mild dilatation beyond the stenosis. There is a focal calcification at the origin Mesenteric arteries: No evidence of occlusion or significant stenosis. Renal Arteries: No evidence of occlusion or significant stenosis. There is a single renal artery perfusing each kidney. Aorta: Minimal atherosclerotic calcification. No evidence of occlusion or significant stenosis. No aneurysm or dissection. Pelvis: Iliac Arteries: Mild atherosclerotic calcification. No evidence of occlusion or significant stenosis. Common Femoral Arteries: Minimal calcifications. No evidence of occlusion or significant stenosis. ABDOMEN and pelvis: Liver: Normal density. No measurable mass. Portal, Superior Mesenteric, and Splenic Veins: Unremarkable. Gallbladder and Biliary Tract: No radiodense calculus or dilation. Pancreas: Mildly atrophic. No abnormal calcifications or inflammatory process. Spleen: Normal. Adrenals: No masses seen. Kidneys: Normal size, contour and axis. No radiodense stones or obstructive uropathy. No masses seen. Bowel: No obstruction or bowel wall thickening. Appendix is unremarkable. Diverticulum of the descending duodenum. Colonic diverticulosis. The appendix is normal. Peritoneal Cavity: No ascites, collection or mesenteric inflammatory response. Lymph Nodes: Within normal limits. Bones: Unremarkable. Soft Tissues: Small fat containing bilateral inguinal hernias. Bladder: Symmetric distention, no gross wall thickening. Reproductive Organs: Unremarkable as visualized. Lymph Nodes: Within normal limits. Bones: Within normal limits. IMPRESSION: Bilateral lower lobe pneumonia, left larger than right. Trace bilateral pleural effusions. 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 RADIATION DOSE DELIVERED: Total DLP DATA REPOSITORY: All CT scans at this facility are submitted to the National Radiology Data Registry (NRDR) Dose Index Registry (DIR) with the [employer] (ACR). RADIATION OPTIMIZATION: All CT scans at this facility use at least one of these dose optimization techniques: automated exposure control; mA and/or kV adjustment per patient size (includes targeted exams where dose is matched to clinical indication); or iterative reconstruction.
[2025-06-21 02:50] LABS: RBC Morphology Normal
[2025-06-21] MEDS: POTASSIUM CHLORIDE 20 MEQ/100 ML BAG 50 MEQ IV_INF ×2 (02:51→04:55)
--- NOTE | 2025-06-21 02:58 | W.ED.GENAD ---
Discharge Plan Disposition Patient Disposition: Transfer-Acute Inpatient Care Specific Acute Inpt Facility: Other Condition: Critical Discharge Details Clinical Impression: Severe sepsis with septic shock, Acute kidney failure, A-fib Primary Care Provider: VICTOR M CABELLO ED Provider: Jessica Cannon Home Meds and New Rx's Prescriptions: No Action tamsulosin 0.4 mg capsule 0.4 mg PO DAILY brimonidine 0.2 % drops 1 drp ophthalmic (eye) BID budesonide 0.5 mg/2 mL suspension for nebulization 0.25 mg inhalation BID carboxymethylcellulose sodium 0.5 % drops 1 drp ophthalmic (eye) QID mometasone-formoterol 100-5 mcg/actuation HFA aerosol inhaler 2 puff inhalation BID allopurinol 100 mg tablet 100 mg PO DAILY colchicine 0.6 mg capsule 0.6 mg PO DAILY albuterol sulfate 90 mcg/actuation HFA aerosol inhaler 2 puff inhalation Q6H PRN atorvastatin 80 mg tablet 80 mg PO DAILY fluticasone propionate 50 mcg/actuation spray,suspension 1 spray intranasal BID Rx Instructions: administer into each nostril furosemide 80 mg tablet 80 mg PO DAILY metoprolol tartrate 25 mg tablet 25 mg PO BID potassium chloride 10 mEq capsule, extended release 10 meq PO DAILY dorzolamide-timolol [Cosopt] 22.3-6.8 mg/mL Drops 1 drp OPHTHALMIC (EYE) BID latanoprost 0.005 % Drops 1 drp OPHTHALMIC (EYE) QPM celecoxib 200 mg capsule 200 mg PO BID Qty: 60 0RF acetaminophen 500 mg tablet 1,000 mg PO TID Qty: 90 3RF HPI General Mode of arrival: ambulatory. Date/Time Provider Initiated Documentation: 06/21/25 02:03. Limitations to Documentation: no limitations. Information obtained by: patient, family and old records reviewed. HPI Narrative: 75yo M with hx COPD, HTN, CABG, presenting via private vehicle for shortness of breath since noon yesterday worsening since onset, much worse tonight. No clear acute worsening or sudden change to prompt presentation to the ED, just feeling worse. Cough productive of pink tinged sputum. No fevers, chills, rash, chest pain, lightheadedness, LE edema, syncope, nausea, vomiting, abdominal pain, numbness, focal weakness. To me he reports a history of open heart surgery for a blood vessel coming off my heart but cannot clarify further, he is not sure if this involved his aorta. Related Data Home Medications ?Medication ?Instructions ?Recorded ?Confirmed dorzolamide 22.3 mg-timolol 6.8 1 drp ophthalmic (eye) BID 12/13/20 09/19/24 mg/mL eye drops (Cosopt) latanoprost 0.005 % eye drops 1 drp ophthalmic (eye) QPM 12/13/20 09/19/24 albuterol sulfate 90 mcg/actuation 2 puff inhalation Q6H PRN 04/01/22 09/19/24 aerosol inhaler atorvastatin 80 mg tablet 80 mg PO DAILY 04/01/22 09/19/24 fluticasone propionate 50 1 spray intranasal BID 04/01/22 09/19/24 mcg/actuation nasal spray,suspension furosemide 80 mg tablet 80 mg PO DAILY 04/01/22 09/19/24 metoprolol tartrate 25 mg tablet 25 mg PO BID 04/01/22 09/19/24 potassium chloride 10 mEq 10 meq PO DAILY 04/01/22 09/19/24 capsule,extended release tamsulosin 0.4 mg capsule 0.4 mg PO DAILY 12/08/22 09/19/24 allopurinol 100 mg tablet 100 mg PO DAILY 09/21/23 09/19/24 brimonidine 0.2 % eye drops 1 drp ophthalmic (eye) BID 09/21/23 09/19/24 budesonide 0.5 mg/2 mL suspension 0.25 mg inhalation BID 09/21/23 09/19/24 for nebulization carboxymethylcellulose sodium 0.5 1 drp ophthalmic (eye) QID 09/21/23 09/19/24 % eye drops colchicine 0.6 mg capsule 0.6 mg PO DAILY 09/21/23 09/19/24 mometasone-formoterol HFA 100 2 puff inhalation BID 09/21/23 09/19/24 mcg-5 mcg/actuation aerosol inhaler acetaminophen 500 mg tablet 1,000 mg (2 x 500 mg) PO TID #90 10/06/23 09/19/24 tabs celecoxib 200 mg capsule 200 mg PO BID #60 caps 10/06/23 09/19/24 Previous Rx's ?Medication ?Instructions ?Recorded acetaminophen 500 mg tablet 1,000 mg (2 x 500 mg) PO TID #90 10/06/23 tabs celecoxib 200 mg capsule 200 mg PO BID #60 caps 10/06/23 Allergies Allergy/AdvReac Type Severity Reaction Status Date / Time oxycodone HCl (From AdvReac Intermediate Vomiting Verified 09/19/24 10:26 OxyContin) amoxicillin AdvReac Unknown Other (See Verified 09/19/24 10:26 Comment) General Stated Complaint: SOB CRISTEL: 3 Review of Systems Narrative: see HPI Exam Narrative Exam Narrative: General: Alert, ill appearing, pale with central cyanosis. Head: Normocephalic, atraumatic Neck: Trachea midline, ?Neck supple. ENT: ?MMM.? Cardiac: ?RRR, no murmurs appreciated Resp: No respiratory distress. Bibisalar crackles. Abd: ?Soft, non-distended, nontender Extremities: ?No deformities.? No peripheral edema. Poorly perfused. Neurologic: GCS 15. ? Moves all extremities freely against gravity Course Vital Signs Vital signs: Vital Signs Temperature 29.8 C L 06/21/25 02:08 Pulse 91 H 06/21/25 02:08 Respiratory Rate 18 06/21/25 02:08 Blood Pressure 64/39 L 06/21/25 02:08 Pulse Oximetry 92 06/21/25 02:08 Temperature 29.8 C L 06/21/25 02:08 Temperature Source Temporal Artery Scan 06/21/25 02:08 Pulse 90 06/21/25 02:20 Pulse 90 06/21/25 02:20 Respiratory Rate 21 06/21/25 02:20 Blood Pressure 58/36 L 06/21/25 02:16 Blood Pressure Mean 41 06/21/25 02:16 Blood Pressure Position Supine 06/21/25 02:08 Pulse Oximetry 90 L 06/21/25 02:20 Oxygen Delivery Method Room Air 06/21/25 02:08 Oxygen Flow Rate 0 06/21/25 02:08 Pain Level 0 06/21/25 02:08 Lab/Test Results Lab/Test Results: 06/21/25 02:22 Blood Blood Culture - Pending 06/21/25 02:22 Blood Blood Culture - Pending Laboratory Tests Range/Units 06/21/25 06/21/25 02:12 02:26 WBC (4.4-10.8) 10^3/uL 19.34 H RBC (4.36-5.78) 10^6/uL 4.26 L Hgb (13.5-17.5) g/dL 13.7 Hct (40.0-50.0) % 41.4 MCV (80-95) fL 97 H MCH (27.0-33.0) pg 32.2 MCHC (32.0-36.0) % 33.1 RDW (11.8-14.1) % 13.8 Plt Count (130-400) 10^3/uL 199 MPV (8.0-11.0) fL 9.3 Immature Gran % See Differential Neutrophils % % 79.0 Band Neutrophils % % 4 Lymphocytes % % 2.0 Atypical Lymphs % % 4 Monocytes % % 6.0 Eosinophils % % 1.0 Basophils % % 0.0 Metamyelocytes % 2 Myelocytes % 2 Nucleated RBC % (0.0-0.3) % 0.0 Absolute Neutrophils (1.2-6.7) 10^3/uL 16.05 H Absolute Lymphocytes (1.2-3.4) 10^3/uL 1.16 L Absolute Monocytes (0.1-0.8) 10^3/uL 1.16 H Absolute Eosinophils (0.0-0.7) 10^3/uL 0.19 Absolute Basophils (0.0-0.2) 10^3/uL 0.00 RBC Morphology Normal PT (9.1-11.1) sec 13.1 H INR (0.9-1.1) 1.3 H APTT (20.6-30.2) sec 29.3 VBG pH (7.31-7.41) 7.34 VBG pCO2 (41-51) mmHg 45 VBG pO2 mmHg 26 VBG HCO3 (23-28) mmol/L 24 VBG Total CO2 (24-29) mmol/L 22 L VBG O2 Saturation % 42 VBG Base Excess (-2-3) mmol/L -2 VBG Lactate (<or=2.0) mmol/L 5.5 H* Sodium (136-145) mmol/L 136 Potassium (3.5-5.1) mmol/L 2.6 L* Chloride (98-107) mmol/L 104 Carbon Dioxide (20.0-31.0) mmol/L 24.8 Anion Gap (3-11) mmol/L 7.2 BUN (9-23) mg/dL 24 H Creatinine (0.73-1.18) mg/dL 2.34 H Est GFR (CKD-EPI 2020) (mL/min/1.73m2) 27.38 Glucose (74-106) mg/dL 119 H Calcium (8.3-10.6) mg/dL 8.7 Magnesium (1.6-2.6) mg/dL 2.0 Total Bilirubin (0.2-1.2) mg/dL 2.40 H AST (<34) U/L 13 ALT (10-49) U/L 14 Alkaline Phosphatase (46-116) U/L 116 Troponin I (<54) ng/L 8 NT-Pro-B Natriuret Pep (<300) pg/mL 4952 H Total Protein (5.7-8.2) g/dL 6.4 Albumin (3.2-5.0) g/dL 3.9 Lipase (<53) U/L 20 Procedure Central Line Placement Date of Procedure: 06/21/25 Time of Procedure: 05:30 Provider that performed the procedure: Jessica Cannon Indication: Central venous access and Hypotension Patient Consented: Written Standard Time Out Performed: Yes Sterility: Sterile Local Anesthetic: Lidocaine 1% Amount of anesthetic used(mL): 4 Laterality: Right Insertion Site: Femoral Insertion Procedure: 1% Lidocaine to skin and subcutaneous tissue with 25g needle, Vessel accessed with needle and Guidewire met resistance Procedure Outcome: Unsuccessful Medical Decision Making 75yo M with hx COPD, HTN, CABG, presenting for shortness of breath since noon yesterday worsening since onset, much worse tonight. No chest pain. On arrival alert and in no acute distress however very ill appearing with poor color, hypotensive with BP 60's/30's. Airway patent and self maintained, crackles in lung bases, no hypoxia. Delayed capillary refill. EKG NSR, appropriate intervals, no ST segment or T wave abnormalities to suggest occlusive DE. Bedside echo with very limited views, difficult 2/t body habitus and b-lines; I see no clear RV dilation or large pericardial effusion, unable to adequately assess cardiac output. Images regrettably did not save. To me he reports a history of open heart surgery for a blood vessel coming off my heart but cannot clarify further, he is not sure if this involved his aorta. -Undifferentiated shock; broad differential at this time though suspect cardiac/PE more likely. Will give IVFB and reassess every 250cc for respiratory status, start pressors (low threshold to add 2nd agent), broad spectrum abx, 325 of ASA. Pt with amoxicillin allergy and unable to clarify exactly what this entails (though denies SOB/hives/airway/N/V/D) so will avoid zosyn. -CXR independently reviewed; no raymond pulmonary edema or mediastinal widening on my view -Norepi uptrated to 20 with some improvement in BP; added dobutamine with good effect. -Pt subsequently in afib on the monitor with rates in 120-130's, MAP >65. -Labs significant for hypokalemia (oral and IV replacement ordered and confirmatory K sent), BNP elevated consistent with CHF, troponin of 8 in the setting of 12+ hour of symptoms argues against DE or massive PE as etiology of shock, WBC markedly elevated (nonspecific but raises level of concern for sepsis). Multiorgan involvement from shock with elevated bili, Cr, lactate 5.5 consistent with inadequate perfusion. -Accompanied to CT; CT independently reviewed with no clear aortic dissection or saddle PE on my view, does appear to have LLL pneumonia. -Repeat EKG afib RVR, rate 150 (pt had just returned from CT, HR decreased 130's at rest), diffuse ST depressions, ST segment or T wave abnormalities to suggest occlusive DE. MAP remains >65 on norepi 20 and dobutamine 10. O2 sat remains 97% on room air but desats to 90-91% when laid flat; would not do further IVFB at this time, will continue to give fluids with potassium. -CT read as below, no PE/aneurysm/dissection, consistent with pneumonia. Overall workup consistent with severe septic shock 2/t pneumonia. Given reassuring cardiac workup will plan to switch to vasopressin from dobutamine; will get central line prior. Spoke with [facility] transfer center and discussed with MICU team; pt accepted to [facility] under Dr. Aguila to the blue team. Discussed further with patient and family and they [facility] and they would strongly prefer transfer there if possible which is not unreasonable if they have ICU capacity. Spoke with Dr. Lockwood at the [place] who graciously accepts patient. [facility] updated regarding patient's planned disposition. Subsequently notified by nursing that blood cultures had not been drawn on arrival or prior to abx; they will draw now. Patient consent for central line placed; attempted placement in right femoral and able to cannulate vessel but unable to advance wire. I was then called from the bedside to speak with requested specialty development consultant on another patient; attempt aborted. Repeat lactate improved to 3.4. Will continue fluid resus with additional 1L. Third troponin stable at 11. K remains low at 2.4; will continue IV repletion. Weaning pressors and HR 120's; hemodynamics more stable now. Dr. Pompa from surgery kindly placed central line; post procedure XR ordered. On reassessment patient off dobutamine, norepi @ 10, now in sinus rhythm with rate 100's. Stable for transport. Signed out to ongoing physician. Plan to followup CXR, repeat EKG, arrange transport to [place], continue close monitoring of hemodynamics. IMPRESSION: No evidence of pulmonary emboli, aneurysm or dissection. Bibasilar consolidations suspicious for pneumonia. Lab Data Lab results reviewed: Yes I reviewed the patient's lab results. Labs: 06/21/25 02:22 Blood Blood Culture - Pending 06/21/25 02:22 Blood Blood Culture - Pending Laboratory Tests Range/Units 06/21/25 06/21/25 06/21/25 02:12 02:26 03:22 WBC (4.4-10.8) 10^3/uL 19.34 H RBC (4.36-5.78) 10^6/uL 4.26 L Hgb (13.5-17.5) g/dL 13.7 Hct (40.0-50.0) % 41.4 MCV (80-95) fL 97 H MCH (27.0-33.0) pg 32.2 MCHC (32.0-36.0) % 33.1 RDW (11.8-14.1) % 13.8 Plt Count (130-400) 10^3/uL 199 MPV (8.0-11.0) fL 9.3 Immature Gran % See Differential Neutrophils % % 79.0 Band Neutrophils % % 4 Lymphocytes % % 2.0 Atypical Lymphs % % 4 Monocytes % % 6.0 Eosinophils % % 1.0 Basophils % % 0.0 Metamyelocytes % 2 Myelocytes % 2 Nucleated RBC % (0.0-0.3) % 0.0 Absolute Neutrophils (1.2-6.7) 10^3/uL 16.05 H Absolute Lymphocytes (1.2-3.4) 10^3/uL 1.16 L Absolute Monocytes (0.1-0.8) 10^3/uL 1.16 H Absolute Eosinophils (0.0-0.7) 10^3/uL 0.19 Absolute Basophils (0.0-0.2) 10^3/uL 0.00 RBC Morphology Normal PT (9.1-11.1) sec 13.1 H INR (0.9-1.1) 1.3 H APTT (20.6-30.2) sec 29.3 VBG pH (7.31-7.41) 7.34 VBG pCO2 (41-51) mmHg 45 VBG pO2 mmHg 26 VBG HCO3 (23-28) mmol/L 24 VBG Total CO2 (24-29) mmol/L 22 L VBG O2 Saturation % 42 VBG Base Excess (-2-3) mmol/L -2 VBG Lactate (<or=2.0) mmol/L 5.5 H* Sodium (136-145) mmol/L 136 Potassium (3.5-5.1) mmol/L 2.6 L* 2.6 L* Chloride (98-107) mmol/L 104 Carbon Dioxide (20.0-31.0) mmol/L 24.8 Anion Gap (3-11) mmol/L 7.2 BUN (9-23) mg/dL 24 H Creatinine (0.73-1.18) mg/dL 2.34 H Est GFR (CKD-EPI 2020) (mL/min/1.73m2) 27.38 Glucose (74-106) mg/dL 119 H Calcium (8.3-10.6) mg/dL 8.7 Magnesium (1.6-2.6) mg/dL 2.0 Total Bilirubin (0.2-1.2) mg/dL 2.40 H AST (<34) U/L 13 ALT (10-49) U/L 14 Alkaline Phosphatase (46-116) U/L 116 Troponin I (<54) ng/L 8 8 NT-Pro-B Natriuret Pep (<300) pg/mL 4952 H Total Protein (5.7-8.2) g/dL 6.4 Albumin (3.2-5.0) g/dL 3.9 Lipase (<53) U/L 20 Critical Care Time Critical Care Time Critical Care Time: Yes Total Critical Care Time: 94 Attestation: Due to a high probability of clinically significant, life threatening deterioration, the patient required my highest level of preparedness to intervene emergently and I personally spent this critical care time directly and personally managing the patient. This critical care time included obtaining a history; examining the patient; pulse oximetry; ordering and review of studies; arranging urgent treatment with development of a management plan; evaluation of patient's response to treatment; frequent reassessment; and, discussions with other providers. This critical care time was performed to assess and manage the high probability of imminent, life-threatening deterioration that could result in multi-organ failure. It was exclusive of separately billable procedures and treating other patients? PFSH All Active Problems (Updated 06/21/25 @ 07:06 by Jessica Cannon MD) A-fib (Chronic) Acute kidney failure (Acute) Severe sepsis with septic shock (Acute) Right ankle pain (Acute) History of total right knee replacement (Acute 10/06/23) Bilateral primary osteoarthritis of knee (Acute) L KNEE: 12/17/23; 06/11/23; 03/12/23, 12/08/2022; 05/29/22 R KNEE: 06/11/23; 03/12/23, 12/08/2022; 09/01/22; 05/29/22 Primary open-angle glaucoma, left eye, indeterminate stage (Chronic) Low-tension glaucoma, right eye, indeterminate stage (Chronic) Low-tension glaucoma, left eye, indeterminate stage (Chronic) Traumatic chest pain (Acute) Medical History Hereditary lymphedema Lung nodule, multiple 06/02/22 [place] [facility] Notes describe multiple, stable nodules for years with change noted in RLL 4.5mm increase to 6.5mm Gout Hx of pleural effusion Spinal stenosis Obesity Hypertension Hx of primary hypertension History of chronic cough History of obesity No history of cellulitis History of esophageal reflux Hx of spinal stenosis cervival Hx of sleep apnea CPAP compliant Glaucoma Normal tension glaucoma, both eyes, indeterminate stage, 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
[2025-06-21] MEDS: Potassium Chloride 20 MEQ TABCR 40 MEQ PO (03:01)
[2025-06-21] MEDS: Omnipaque 350 MG/ML 100 ML BTL IJ (03:20)
[2025-06-21] MEDS: Normal Saline Flush 10 ML SYR IVP (03:22)
[2025-06-21] MEDS: Normal Saline - Diluent 50 ML VIAL IJ (03:22)
--- NOTE | 2025-06-21 03:30 | RT.EKG_ITS ---
APPROVED REPORT Exam: Resting ECG Reason for Exam: sob Patient Location: E HR:150 bpm ECG Measurements Heart Rate 150 AXIS [place] [id number] P [id number] QRSd 90 QRS 41 QT 274 T 219 QTc 432 Conclusion Atrial fibrillation with rapid V-rate...A-rate 388 Repolarization abnormality, prob rate related...ST dep, T neg, tachycardia afib RVR no ST segment or T wave abnormalities to suggest occlusive RI
[2025-06-21 03:45] LABS: Troponin I 8 ng/L (<54)
[2025-06-21 03:46] LABS: Potassium 2.6 mmol/L (3.5-5.1)
--- NOTE | 2025-06-21 03:56 | DI.VRAD_ITS ---
PROCEDURE INFORMATION: Exam: XR Chest Exam date and time: 06/21/2025 2:24 AM Age: 75 years old Clinical indication: Shortness of breath; Prior surgery; Surgery date: 6+ months; Surgery type: Cabg; SOB TECHNIQUE: Imaging protocol: Radiologic exam of the chest. Views: 1 view. COMPARISON: CR XR RIBS LT W PA LAT CHEST 12/13/2020 11:06 AM FINDINGS: Lungs: Consolidation at the left lung base. Pleural spaces: Suggestion of small left pleural effusion. No pneumothorax. Heart/Mediastinum: Unremarkable. No cardiomegaly. Bones/joints: Sternotomy. IMPRESSION: Suggestion of small left pleural effusion and consolidation at the left lung base. Dictated and Authenticated by: Jessica Regan MD. Orderin Davis Lopez MD
[2025-06-21] MEDS: CEFEPIME 1 GM in Normal Saline 50 ML IVPB (04:04)
--- NOTE | 2025-06-21 04:05 | DI.VRAD_ITS ---
PROCEDURE INFORMATION: Exam: CTA Chest With Contrast CTA Abdomen and Pelvis With Contrast Exam date and time: 06/21/2025 2:52 AM Age: 75 years old Clinical indication: Other: Eval for dissection; Shortness of breath; Prior surgery; Surgery date: 6+ months; Surgery type: Cabg; Eval for aortic dissection TECHNIQUE: Imaging protocol: Computed tomographic angiography of the chest with contrast. Exam focused on the arteries. Computed tomographic angiography of the abdomen and pelvis with contrast. Exam focused on the arteries. 3D rendering (Not supervised by radiologist): MIP and/or 3D reconstructed images were created by the technologist. Radiation optimization: All CT scans at this facility use at least one of these dose optimization techniques: automated exposure control; mA and/or kV adjustment per patient size (includes targeted exams where dose is matched to clinical indication); or iterative reconstruction. Contrast material: OMNIPAQUE 350; Contrast volume: 85 ml; Contrast route: INTRAVENOUS (IV); COMPARISON: CR XR PORTABLE CHEST AP 06/21/2025 2:24 AM FINDINGS: VASCULATURE: Pulmonary arteries: Normal. No pulmonary emboli. Aorta: Mild atherosclerotic disease. No aortic aneurysm or dissection. 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 Post stenotic dilatation is present measuring 1.1 cm. Good flow seen in the artery beyond the stenosis. Superior mesenteric and inferior mesenteric arteries are unremarkable. Renal arteries: No occlusion or significant stenosis. Right iliac arteries: No occlusion or significant stenosis. Left iliac arteries: No occlusion or significant stenosis. CHEST: Lungs: There are bibasilar consolidations left side right suspicious for pneumonia although atelectasis may occur this way. Pleural spaces: Trace pleural effusions. Heart: Heart size is normal. No pericardial effusion no coronary artery calcific mild coronary calcification. Coronary arteries: CABG. ABDOMEN AND PELVIS: Liver: No mass. Gallbladder and biliary ducts: Unremarkable. No calcified stones. No ductal dilation. Pancreas: Pancreas is atrophic. Spleen: Unremarkable. No splenomegaly. Adrenal glands: Unremarkable. No mass. Kidneys and ureters: Unremarkable. No solid mass. No hydronephrosis. Stomach and bowel: Stomach is unremarkable. Duodenal diverticulum at the level of the pancreatic head. Rest of the small bowel is normal in caliber. Colonic diverticulosis without diverticulitis. Appendix: No evidence of appendicitis. Intraperitoneal space: Unremarkable. No free air. No significant fluid collection. Urinary bladder: Unremarkable. No mass. Reproductive: Unremarkable as visualized. Lymph nodes: 1.4 cm subcarinal node, likely reactive. Bones/joints: Sternotomy. Degenerative changes of the spine Soft tissues: Unremarkable. Other findings: IMPRESSION: No evidence of pulmonary emboli, aneurysm or dissection. Bibasilar consolidations suspicious for pneumonia. Dictated and Authenticated by: Jessica Regan MD. Orderin Davis Lopez MD
[2025-06-21] MEDS: LINEZOLID 600 MG/300 ML BAG 300 MG IVPB (04:34)
[2025-06-21] MEDS: Normal Saline-STERILE FIELD 0.9% 10 ML SYR (05:21)
[2025-06-21 06:00] LABS: Potassium 2.4 mmol/L (3.5-5.1)
[2025-06-21 06:03] LABS: Troponin I 11 ng/L (<54)
[2025-06-21 06:14] LABS: TSH (W/Ref FT4) 1.14 uIU/mL (0.55-4.78)
--- NOTE | 2025-06-21 06:30 | DI.RAD_ITS ---
Exam(s) XR PORTABLE CHEST AP POST LINE EXAM: XR PORTABLE CHEST AP POST LINE CLINICAL HISTORY: Central line placement TECHNIQUE: 2D digital imaging was performed. COMPARISON: CR,XR XR PORTABLE CHEST AP from 06/21/[address] THORAX ABD/PEL CTA from 06/21/2025 FINDINGS: Exam is limited by suboptimal pulmonary inflation. There overlying monitoring leads. There are overlying defibrillator pads of the left lower lobe. A right internal jugular central venous catheter has been inserted with the tip projecting at the cavoatrial junction. LUNGS: Increased densities are noted at both lung bases although the left lung base is partially obscured. HEART: Normal size. AORTA: Normal diameter. BONES: The spine is mostly obscured. The there are wires in the sternum. Soft tissues: Unremarkable. IMPRESSION: Satisfactory placement of right internal jugular catheter. No pneumothorax. Bibasilar infiltrates. DATA REPOSITORY: RADIATION DOSE DELIVERED:
[2025-06-21 06:32] LABS: COVID-19 PCR Negative (Negative); RSV PCR Negative (Negative)
--- NOTE | 2025-06-21 07:00 | RT.EKG_ITS ---
APPROVED REPORT Exam: Resting ECG Reason for Exam: sob Patient Location: E HR:88 bpm ECG Measurements Heart Rate 88 AXIS [place] 197 P 54 QRSd 98 QRS 20 QT 346 T 68 QTc 418 Conclusion Sinus rhythm, rate 88 No interval abnormalities No STEMI Compared to priors, A-fib with RVR has resolved
--- NOTE | 2025-06-21 07:01 | W.SURGCON ---
Date of service: 06/21/25 Time of Service: 06:30 Assessment and Plan Assessment and plan (1) Severe sepsis with septic shock: Status: Acute Assessment and plan: Patient is a 75-year-old male who presents to the emergency department with shortness of breath and feeling unwell. On arrival he was noted to be hypotensive and further workup was obtained from emergency department. During this time he was started on pressors and a femoral central line was attempted but unsuccessful. General surgery was consulted to perform a central line. The procedure was discussed with the patient at the bedside. He did endorse a history of a prior CABG and likely central line for this procedure at the time. The risks and benefits of the procedure were discussed and verbal consent was obtained from the patient prior to the procedure due to acuity of the situation. History of Present Illness Narrative: Patient is a 75-year-old male who presented to the ED with worsening shortness of breath. He also endorsed cough productive of pink sputum. On presentation he was hypotensive and underwent further workup in the emergency department. The concerns were septic shock. The emergency department attending attempted a femoral central line however this was unsuccessful. General surgery was consulted for placement of a central line. On discussion with the patient he does note a history of prior CABG and thinks at this point he has had a prior central line in his right IJ. He denies any history of DVT. PFSH All Active Problems (Updated 06/21/25 @ 07:06 by Jessica Cannon MD) A-fib (Chronic) Acute kidney failure (Acute) Severe sepsis with septic shock (Acute) Right ankle pain (Acute) History of total right knee replacement (Acute 10/06/23) Bilateral primary osteoarthritis of knee (Acute) L KNEE: 12/17/23; 06/11/23; 03/12/23, 12/08/2022; 05/29/22 R KNEE: 06/11/23; 03/12/23, 12/08/2022; 09/01/22; 05/29/22 Primary open-angle glaucoma, left eye, indeterminate stage (Chronic) Low-tension glaucoma, right eye, indeterminate stage (Chronic) Low-tension glaucoma, left eye, indeterminate stage (Chronic) Traumatic chest pain (Acute) Medical History Hereditary lymphedema Lung nodule, multiple 06/02/22 [facility] describe multiple, stable nodules for years with change noted in RLL 4.5mm increase to 6.5mm Gout Hx of pleural effusion Spinal stenosis Obesity Hypertension Hx of primary hypertension History of chronic cough History of obesity No history of cellulitis History of esophageal reflux Hx of spinal stenosis cervival Hx of sleep apnea CPAP compliant Glaucoma Normal tension glaucoma, both eyes, indeterminate stage, 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 Exam Narrative Exam Narrative: General: Acue distress, ill appearing Skin: Good turgor HEENT: Normocephalic, atraumatic, no visible masses, neck supple CV: Tacchycardic Extremities: No deformities Neurologic: No focal deficits Psychiatric: Alert and oriented, normal mood and affect Results Last Vital Signs Temp 36.6 C 06/21/25 02:30 Pulse 139 H 06/21/25 06:31 Resp 22 06/21/25 06:31 BP 115/59 L 06/21/25 06:31 Pulse Ox 97 06/21/25 06:31 Labs 06/21/25 02:12 06/21/25 05:38 Labs: Laboratory Results - last 24 hr 06/21/25 06/21/25 06/21/25 02:12 02:26 03:22 WBC 19.34 H RBC 4.26 L Hgb 13.7 Hct 41.4 MCV 97 H MCH 32.2 MCHC 33.1 RDW 13.8 Plt Count 199 MPV 9.3 Immature Gran % See Differential Neutrophils % 79.0 Band Neutrophils % 4 Lymphocytes % 2.0 Atypical Lymphs % 4 Monocytes % 6.0 Eosinophils % 1.0 Basophils % 0.0 Metamyelocytes % 2 Myelocytes % 2 Nucleated RBC % 0.0 Absolute Neutrophils 16.05 H Absolute Lymphocytes 1.16 L Absolute Monocytes 1.16 H Absolute Eosinophils 0.19 Absolute Basophils 0.00 RBC Morphology Normal PT 13.1 H INR 1.3 H APTT 29.3 VBG pH 7.34 VBG pCO2 45 VBG pO2 26 VBG HCO3 24 VBG Total CO2 22 L VBG O2 Saturation 42 VBG Base Excess -2 VBG Lactate 5.5 H* Sodium 136 Potassium 2.6 L* 2.6 L* Chloride 104 Carbon Dioxide 24.8 Anion Gap 7.2 BUN 24 H Creatinine 2.34 H Est GFR (CKD-EPI 2020) 27.38 Glucose 119 H Calcium 8.7 Magnesium 2.0 Total Bilirubin 2.40 H AST 13 ALT 14 Alkaline Phosphatase 116 Troponin I 8 8 NT-Pro-B Natriuret Pep 4952 H Total Protein 6.4 Albumin 3.9 Lipase 20 TSH COVID-19 Source SARS-CoV-2 (PCR) Influenza Type A (PCR) Influenza Type B (PCR) RSV (PCR) 06/21/25 06/21/25 05:38 05:46 WBC RBC Hgb Hct MCV MCH MCHC RDW Plt Count MPV Immature Gran % Neutrophils % Band Neutrophils % Lymphocytes % Atypical Lymphs % Monocytes % Eosinophils % Basophils % Metamyelocytes % Myelocytes % Nucleated RBC % Absolute Neutrophils Absolute Lymphocytes Absolute Monocytes Absolute Eosinophils Absolute Basophils RBC Morphology PT INR APTT VBG pH VBG pCO2 VBG pO2 VBG HCO3 VBG Total CO2 VBG O2 Saturation VBG Base Excess VBG Lactate 3.4 H* Sodium Potassium 2.4 L* Chloride Carbon Dioxide Anion Gap BUN Creatinine Est GFR (CKD-EPI 2020) Glucose Calcium Magnesium Total Bilirubin AST ALT Alkaline Phosphatase Troponin I 11 NT-Pro-B Natriuret Pep Total Protein Albumin Lipase TSH 1.14 COVID-19 Source Nasopharynx SARS-CoV-2 (PCR) Negative Influenza Type A (PCR) Negative Influenza Type B (PCR) Negative RSV (PCR) Negative Procedures Central Line Placement Right IJ: Time out performed: Yes Patient placed on monitor/pulse ox: Yes prep: mask, gown and gloves Central line prep: Chlorhexidine scrub and sterile drapes applied Local anesthesia used: lidocaine 1% Amount of anesthesia used (ml): 3 Ultrasound used for placement: Yes Central line lumen inserted: triple Post procedure: sutured in place, good blood return, all ports aspirated, flushed, capped and sterile dressing applied Post procedure x-ray: tip of catheter in good position and no pneumothorax seen Patient tolerated procedure: well and no complications Complications: none
--- NOTE | 2025-06-21 07:08 | DI.VRAD_ITS ---
PROCEDURE INFORMATION: Exam: XR Chest Exam date and time: 06/21/2025 6:52 AM Age: 75 years old Clinical indication: Shortness of breath; SOB, post-line single view portable chest TECHNIQUE: Imaging protocol: Radiologic exam of the chest. Views: 1 view. COMPARISON: CT THORAX ABD/PEL CTA 06/21/2025 2:52 AM FINDINGS: Tubes, catheters and devices: Right internal jugular vein catheter with tip in the region of the cavoatrial junction. Lungs: Bibasilar consolidations are unchanged, better appreciated on the prior CT. Pleural spaces: Trace left pleural effusion. No pneumothorax. Heart/Mediastinum: Unremarkable. No cardiomegaly. Bones/joints: Sternotomy. IMPRESSION: Right internal jugular vein catheter with tip in the region of the cavoatrial junction. No pneumothorax. Stable bibasilar consolidations and small left pleural effusion. Dictated and Authenticated by: Jessica Regan MD. Orderin Peña Lopez MD
[2025-06-21] MEDS: VASOPRESSIN 50 UNITS in Normal Saline 497.5 ML 24 UNITS IV (07:30)
--- NOTE | 2025-06-21 07:58 | ED.PROG_ITS ---
Date of service: 06/21/25 Time of Service: 07:00 Medical Decision Making In brief, this is a 75-year-old male patient presenting to the ED with hypotension and septic shock likely due to a pulmonary source. Please see the initial providers note for full details of his history, evaluation, and treatment. The patient was signed out to me after having been accepted to the [place] for transfer. He is on norepinephrine and vasopressin, and his blood pressures have improved. I did place an arterial line as noted below given some variation in cuff pressures. The patient had blood cultures drawn and has received 2 L of IV fluids and antibiotics. He is awake, alert, and oriented. He is requiring some supplemen jalen oxygen and has a junky sounding cough. A central line was placed by General surgery and I reviewed the chest x-ray which does show appropriate placement. Repeat EKG shows resolution of his atrial fibrillation, he is in a sinus rhythm with an appropriately controlled rate, no evidence for acute ischemia. The patient's pressors were adjusted, ultimately he ended up on 0.04 units/min of vasopressin, and 30 mcg/min of norepinephrine with excellent blood pressure control, maps sustained above 65 mmHg. The patient received a dose of Tylenol for general discomfort related to the hospital bed, as well as a duo nebulizer treatment for some shortness of breath, which did improve his work of breathing per subjective report. 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 While under my care the patient remained hemodynamically improved and he left our facility without incident. Alyx Jefferson MD Procedure Arterial Line Date of Procedure: 06/21/25 Time of Procedure: 08:00 Provider that performed the procedure: Alyx Jefferson Indication: BP Monitoring and Hypotension Patient Consented: Verbally Sterility: Sterile Local Anesthetic: Lidocaine 1% Amount of anesthetic used(mL): 1 Laterality: Right Insertion Site: Radial Arterial Line Catheter: 20G Arrow Arterial Line Procedure: 1% Lidocaine to skin and subcutaneous tissue with 25g needle, Vessel accessed with catheter over needle, Guidewire placed with ease, Catheter placed without resistance and Guidewire removed Ultrasound: Used/Image Saved Number of Attempts( see previous attempts in note section): 1 Dressing: Tegaderm Applied and Sutured in Place Procedure Tolerated: No Complications and Patient tolerated well Procedure Outcome: Successful Procedure Description Note: The decision was made to proceed with arterial access. The right radial artery was assessed with ultrasound and found to be amenable to catheterization. Under sterile procedure, the site was thoroughly cleansed, the patient was draped, and under ultrasound guidance lidocaine was utilized to anesthetize the skin and needle tract. The arrow needle was directly visualized under ultrasound to be advancing into the artery, with pulsatile blood flow noted in the chamber. The needle was advanced under ultrasound guidance. The wire was advanced with ease and the catheter fully advanced into the vessel over the guidewire. The guidewire/arrow device was removed and the catheter was sutured in place and secured with a Tegaderm. The patient tolerated this procedure well, with no immediate adverse effects. Discharge Plan Disposition Patient Disposition: Transfer-Acute Inpatient Care Specific Acute Inpt Facility: Other Condition: Critical Discharge Details Clinical Impression: Severe sepsis with septic shock, Acute kidney failure, A-fib Primary Care Provider: VICTOR M CABELLO ED Provider: Alyx Jefferson Home Meds and New Rx's Prescriptions: No Action tamsulosin 0.4 mg capsule 0.4 mg PO DAILY brimonidine 0.2 % drops 1 drp ophthalmic (eye) BID budesonide 0.5 mg/2 mL suspension for nebulization 0.25 mg inhalation BID carboxymethylcellulose sodium 0.5 % drops 1 drp ophthalmic (eye) QID mometasone-formoterol 100-5 mcg/actuation HFA aerosol inhaler 2 puff inhalation BID allopurinol 100 mg tablet 100 mg PO DAILY colchicine 0.6 mg capsule 0.6 mg PO DAILY albuterol sulfate 90 mcg/actuation HFA aerosol inhaler 2 puff inhalation Q6H PRN atorvastatin 80 mg tablet 80 mg PO DAILY fluticasone propionate 50 mcg/actuation spray,suspension 1 spray intranasal BID Rx Instructions: administer into each nostril furosemide 80 mg tablet 80 mg PO DAILY metoprolol tartrate 25 mg tablet 25 mg PO BID potassium chloride 10 mEq capsule, extended release 10 meq PO DAILY dorzolamide-timolol [Cosopt] 22.3-6.8 mg/mL Drops 1 drp OPHTHALMIC (EYE) BID latanoprost 0.005 % Drops 1 drp OPHTHALMIC (EYE) QPM celecoxib 200 mg capsule 200 mg PO BID Qty: 60 0RF acetaminophen 500 mg tablet 1,000 mg PO TID Qty: 90 3RF
[2025-06-21] MEDS: Norepinephrine in D5W 8 MG/250 ML BAG 56.2 MG IV (08:57)
[2025-06-21] MEDS: ACETAMINOPHEN 1,000 MG/100 ML BAG 400 MG IVPB (09:00)
--- NOTE | 2025-06-21 09:38 | NUR.NOTE ---
Nursing Note: pt c/o general discomfort. this RN assisted patient with shifting body in bed gave more pillows to support arms, light dimmed in room, gave APAP as ordered. At this time pt is more comfortable he wants to sleep he stated he has been up all night.
--- NOTE | 2025-06-22 12:04 | NUR.NOTE ---
Access chart to reconcile EKG orders with EKG's in [facility]. EKG's need to be read.Nursing Note:
== END 2025-06-21 10:44 | disposition short-term general hospital (02) ==
PROVIDERS: Student in an Organized Health Care Education/Training Program; Emergency Provider Emergency Medicine; PCP Internal Medicine
DX: I48.91 Unspecified atrial fibrillation; R65.21 Severe sepsis with septic shock; R06.02 Shortness of breath; N17.9 Acute kidney failure, unspecified
CPT/HCPCS: 00123; 36415; 36556; 71045; 71275; 76937; 80053; 82805; 83690; 87040; 87637; 93005; 94640; 96365; 96366; 96367; 96368; 96375; 99291; 36620; 74174; 83605; 83735; 83880; 84132; 84443; 84484; 85025; 85610; 85730; 93010; J0131; J0692; J1250; J2020; J2598; J3480; J3490; J7620